=== PATIENT | female | born 1930 | race Caucasian/White ===

== ENCOUNTER 2016-10-17 11:03 | Inpatient (IN) ==
--- NOTE | 2016-10-17 11:45 | Emergency Department Note ---
Disposition Clinical Impression: Delirium due to general medical condition, Elevated troponin I level, Acute on chronic renal insufficiency CHF exacerbation Qualifiers: Congestive heart failure type: unspecified congestive heart failure type Qualified Code(s): I50.9 - Heart failure, unspecified Acute and chronic respiratory failure Qualifiers: Respiratory failure complication: hypoxia Qualified Code(s): J96.21 - Acute and chronic respiratory failure with hypoxia Anemia Qualifiers: Anemia type: unspecified type Qualified Code(s): D64.9 - Anemia, unspecified Disposition: Admitted As Inpatient Condition: Critical Time of Disposition: 12:53 Altered Mental Status HPI - General Chief Complaint: ED Altered Mental Status Stated Complaint: AMS Time Seen by Provider: 10/17/16 11:10 Source: patient, family, EMS Limitations: no limitations Nursing Notes Reviewed: Yes Vital Signs Reviewed: Yes - History of Present Illness HPI Narrative: 85-year-old female history of CVA, presents with increased weakness for the last 2 weeks, no clear acute onset of her symptoms, also has a history of CHF who was recently placed on diuretics, found to have an enlarged heart with pleural effusion on the left. MD complaint: altered mental status, confusion Timing confirmed by: family member Pain Severity: mild Consistency of Symptoms: getting worse Context: change in medication (lasix daily added to meds) Associated symptoms: Reports: cough, loss of appetite, malaise, weakness. Denies: fever, nausea/vomiting, foul smelling urine, diarrhea - Related Data Home Medications Medication Instructions Recorded Confirmed Allopurinol [Zyloprim 100 MG] 100 mg PO DAILY 02/06/16 09/17/16 Ascorbic Acid [Vitamin C] 500 mg PO DAILY 02/06/16 09/17/16 Calcium Carbonate [Tums] 1 tab PO QID PRN 02/06/16 09/17/16 Calcium Carbonate/Vitamin D3 1 tab PO DAILY 02/06/16 09/17/16 [Oyster Shell 500-Vit D3 200 Tb] Cholecalciferol (Vitamin D3) 5,000 units PO 3XW 02/06/16 09/17/16 [Vitamin D3] Clopidogrel [Plavix] 75 mg PO DAILY 02/06/16 09/17/16 Cyanocobalamin (Vitamin B-12) 1 tab PO DAILY 02/06/16 09/17/16 [Vitamin B-12] Folic Acid 1 mg PO DAILY 02/06/16 09/17/16 Mag Hydrox/Al Hydrox/Simeth 30 ml PO QID PRN 02/06/16 09/17/16 [Maalox] Menthol/Camphor [Polar Freeze Gel] 1 appl TP BID PRN #0 02/06/16 09/17/16 Mirtazapine 7.5 mg PO HS 02/06/16 09/17/16 Multivitamin [Multivitamins] 1 cap PO DAILY 02/06/16 09/17/16 Petrolatum,White [Vaseline] 1 appl TP DAILY PRN 02/06/16 09/17/16 Pyridoxine (B-6) [Vitamin B-6] 100 mg PO DAILY 02/06/16 09/17/16 Ranitidine HCl [Heartburn Relief] 150 mg PO BID 02/06/16 09/17/16 Ropinirole HCl [Requip] 0.5 mg PO BID 02/06/16 09/17/16 Terconazole Vag CRM [Terazol] 1 appl VG DAILY PRN #0 02/06/16 09/17/16 Vit C/E/Zn/Coppr/Lutein/Zeaxan 1 cap PO DAILY 02/06/16 09/17/16 [Ocuvite Lutein & Zeaxanthin Cp] Lidocaine HCl [Aspercreme] 1 appl TP AD 05/08/16 09/17/16 Pantoprazole Sodium [Protonix] 20 mg PO DAILY 05/08/16 09/17/16 Cranberry Fruit Concentrate 450 mg PO BID 09/17/16 09/17/16 [Cranberry] Furosemide [Lasix] 40 mg PO DAILY 09/17/16 09/17/16 Metoprolol XL (24 HR) Succ [Toprol 25 mg PO BID 09/17/16 09/17/16 Xl] Morphine Sulfate [Morphine Sulfate 30 mg PO BID 09/17/16 09/17/16 ER] Previous Rx's Medication Instructions Recorded Isosorbide MONOnitrate (24 HR) 30 mg PO DAILY #30 tab.er.24h 02/08/16 [Imdur] Amlodipine [Norvasc] 10 mg PO DAILY tablet 05/12/16 Magnesium Oxide [Magnesium] 400 mg PO DAILY #0 05/12/16 Quetiapine Fumarate [Seroquel] 12.5 mg PO BID #30 tablet 05/12/16 Thiamine (B-1) [Vitamin B-1] 100 mg PO DAILY tablet 05/12/16 Capsaicin 0.025% [Trixaicin] 1 appl TP QID PRN #1 tube 09/21/16 Hydrocodone/Acetaminophen [[place] 1 tab PO Q6H PRN #10 tab 09/21/16 5-325 Tablet] LORazepam [Ativan] 0.5 mg PO BID #20 tablet 09/21/16 Allergies Allergy/AdvReac Type Severity Reaction Status Date / Time ibuprofen [From Motrin] Allergy Hives Verified 11/08/15 00:21 niacin Allergy Hives Verified 11/08/15 00:21 Sulfa (Sulfonamide Allergy Hives Verified 05/08/16 12:37 Antibiotics) Review of Systems: A 14 point ROS was obtained and was negative except as per below or as documented in the HPI. Constitutional: weakness, weight change Denies: fever, chills, Eyes: Denies: eye pain, eye discharge, vision change ENT: Denies: ear pain, throat pain, hearing loss, epistaxis, congestion, Cardiovascular: Denies: chest pain, palpitations, dyspnea on exertion, edema, syncope Respiratory: cough, dyspnea, wheezes Denies: , hemoptysis, stridor Gastrointestinal: Denies: abdominal pain, nausea, vomiting. diarrhea, constipation, hematemesis, hematochezia Genitourinary: Denies: urgency, dysuria, frequency, hematuria Musculoskeletal: Denies: back pain, neck pain, arthralgia, myalgia Integumentary: Denies: rash, abrasion, lesions Neurological: Denies: headache, weakness, numbness, paresthesias, confusion, abnormal gait Psychiatric: Denies: anxiety, depression, suicidal thoughts, homicidal thoughts , Endocrine: Denies: fatigue Hematological/Lymphatic: Denies: easy bleeding, easy bruising Allergic/Immunologic: Denies: facial swelling, urticaria All systems ED: reviewed and negative except as stated. Past Medical History - Past Medical History Attestation: Yes The following information was validated with the patient. Source: patient Medical history: Reports: CHF, coronary artery disease, CVA, GERD, hyperlipidemia, hypertension, myocardial infarction Surgical history: Reports: appendectomy, cholecystectomy, hysterectomy, other ( left carodit endarterectomy) Psychiatric history: Reports: anxiety, depression - Social History Smoking Status: Never smoker Smokeless Tobacco Status: No Alcohol use: Reports: none Drug use: Reports: none Physical Exam General: 85-year-old female who appears mildly confused, shortness of breath Head: NCAT, no lesions Eyes: sclera anicteric, conjunctiva normal, PERRLA bilaterally, EOMI Bilaterally Ears: normal inspection, external ear wnl Nose: nasal septum nondeviated, sinuses nontender Throat: good dentition, mucous membranes dry Neck: no lymphadenopathy, trachea midline no deviation, no JVD Resp: Diminished breath sounds present bilaterally at the bases, decreased aeration CV: RRR, normal S1 and S2, no m/g/r, Pulses +2 Rad, +2 DP/PT Abdomen: Soft, NTND, no hepatosplenomegaly, no hernias, Negative Rovsing's sign , Negative Palomares's sign Rectal: Not grossly bloody, no obvious masses or hemorrhoids, knutson/yellow feces Back: normal inspection, no tenderness to palpation, Negative CVA tenderness bilaterally Neuro: A&O2, CN II-XII grossly intact bilaterally, no motor or sensory deficits bilaterally, not excess, patient was not ambulatory GCS 15 [id number] Ext: normal inspection, symmetric Active and Passive ROM UE and LE bilaterally , no pedal edema bilaterally Psych: normal mood, normal affect Skin: No rashes, skin warm, dry, intact - General Limitations: no limitations General appearance: alert, in no apparent distress Course Course Narrative: 85-year-old female with shortness of breath, altered mental status, precipitous decline in the last 2 weeks recently placed on diuretic for pleural effusion, also recently had a drop in her hemoglobin from 9-7.8, rectal exam does not show an obvious concern for GI bleed, patient has been symptomatically previously with UTIs we will get an ultrasound also has workup including head CT , oriented ABG patient may candidate for BiPAP and she is currently on 5 L of oxygen satting 86% and not moving much air, 1 placed on nonrebreather her saturation went up to 100% and she notes that she is breathing a lot easier. I cleared admission to ICU stepdown bed given the patient's multiple comorbidities and risk factors, will type and screen as well given concern for anemia, Blood glucose urinalysis reassessed - Reevaluation(s) Reevaluation #1: Spoke with Dr. Pennington limit the patient for acute respiratory failure, CHF exacerbation, acute on chronic renal failure, medicine service on BiPAP at this time. Time: 12:51 Reevaluation #2: Troponin was 0.08, I think this is due to demand ischemia and renal failure, urinalysis unremarkable not treat, I did attempt to call the hospitalist Dr. Pennington back at 1255, however page was not returned, just to communicate elevated troponin level however at this time I do not think she is a candidate for any anticoagulation. Time: 13:10 Vital Signs Temperature 98.7 F 10/17/16 11:06 Pulse Rate 102 10/17/16 11:06 Respiratory Rate 18 10/17/16 11:06 Blood Pressure 130/82 10/17/16 11:06 O2 Sat by Pulse Oximetry 93 L 10/17/16 11:06 Temperature 98.7 F 10/17/16 11:06 Pulse Rate 96 10/17/16 12:45 Respiratory Rate 18 10/17/16 13:07 Blood Pressure 100/62 10/17/16 13:07 O2 Sat by Pulse Oximetry 96 10/17/16 12:45 Oxygen Delivery Oxygen Delivery Bipap Altered Mental Status - [facility] Narrative Medical decision making narrative: 85-year-old female appears to have delirium in the setting of CHF exacerbation, acute on chronic respiratory failure acute on chronic renal failure, elevated troponin elevated creatinine, her clinical exam and x-ray are consistent with CHF exacerbation with bilateral pleural effusions, left greater than right, cardiomegaly, patient placed on BiPAP, diuresed with 40 of Lasix and IV Mosher placed, admitted to medicine service in serious condition - Differential Diagnosis Likely: alcoholic intoxication, altered mental status, delirium, dementia, hypoglycemia, hyponatremia, subarachnoid hemorrhage - Medical Records Medical records reviewed: Yes I reviewed the patient's medical records. - Lab Data Lab results reviewed: Yes I reviewed the patient's lab results. Result diagrams: 10/17/16 12:13 10/17/16 12:13 Lab Results 10/17/16 10/17/16 10/17/16 Range/Units 11:07 11:30 12:10 WBC (4.3-11.1) K/mcL RBC (3.82-4.97) M/mcL Hgb (11.5-15.4) g/dL Hct (35.3-44.9) % MCV (83.0-100.0) fL MCH (28.0-33.3) pg MCHC (31.6-35.5) g/dL RDW (11.5-14.5) % Plt Count (140-400) K/mcL MPV (9.4-12.4) fL Immature Gran % (0-4) % Seg Neutrophils % % Lymphocytes % % Monocytes % % Eosinophils % % Basophils % % Neutrophils # (1.6-8.9) K/mcL Lymphocytes # (0.6-4.6) K/mcL Monocytes # (0.0-1.3) K/mcL Eosinophils # (0.0-0.6) K/mcL Basophils # (0.0-0.2) K/mcL PT (9.4-12.1) Seconds INR APTT (26.0-36.0) Seconds ABG pH 7.38 (7.32-7.45) pH Units ABG pCO2 55 H (35-45) mmHg ABG pO2 124 H (85-104) mmHg ABG HCO3 32.5 H (21-27) mEQ/L ABG Total CO2 34.2 H (20-26) mEq/L ABG O2 Saturation 99 H (95-98) % ABG Base Excess 6.4 H (-2.0 to 3.0) mEq/L Blood Gas Modality NRB Inspired O2 100 % Sodium (136-145) mEq/L Potassium (3.5-4.5) mEq/L Chloride (98-109) mEq/L Carbon Dioxide (19-29) mEq/L BUN (7-20) mg/dL Creatinine (0.57-1.11) mg/dL Est GFR ( Amer) (> 60) Est GFR (Non-Af Amer) (> 60) BUN/Creatinine Ratio (6-26) Glucose (70-99) mg/dL POC Glucose 171 H (58-89) Calculated Osmolality (280-300) Calcium (8.6-10.8) mg/dL Total Bilirubin (0.2-1.2) mg/dL Direct Bilirubin (0.0-0.5) mg/dL Indirect Bilirubin (0.0-1.2) mg/dL AST (5-34) Units/L ALT (0-55) Units/L Alkaline Phosphatase (38-126) Units/L Creatine Kinase (29-168) Units/L Troponin I (0-0.03) ng/mL Serum Total Protein (6.0-8.3) g/dL Albumin (3.5-5.0) g/dL Globulin (2.4-3.5) g/dL Albumin/Globulin Ratio (1.1-2.2) TSH (0.350-4.840) mcIU/mL Stool Occult Blood Negative (Negative) Ethyl Alcohol (0-10) mg/dL 10/17/16 10/17/16 10/17/16 Range/Units 12:13 12:13 12:13 WBC 9.0 (4.3-11.1) K/mcL RBC 3.03 L (3.82-4.97) M/mcL Hgb 8.5 L (11.5-15.4) g/dL Hct 26.4 L (35.3-44.9) % MCV 87.1 (83.0-100.0) fL MCH 28.1 (28.0-33.3) pg MCHC 32.2 (31.6-35.5) g/dL RDW 14.7 H (11.5-14.5) % Plt Count 322 (140-400) K/mcL MPV 8.9 L (9.4-12.4) fL Immature Gran % 0.7 (0-4) % Seg Neutrophils % 80.5 % Lymphocytes % 7.1 % Monocytes % 10.8 % Eosinophils % 0.7 % Basophils % 0.2 % Neutrophils # 7.3 (1.6-8.9) K/mcL Lymphocytes # 0.6 (0.6-4.6) K/mcL Monocytes # 1.0 (0.0-1.3) K/mcL Eosinophils # 0.1 (0.0-0.6) K/mcL Basophils # 0.0 (0.0-0.2) K/mcL PT 13.9 H (9.4-12.1) Seconds INR 1.3 APTT 34.0 (26.0-36.0) Seconds ABG pH (7.32-7.45) pH Units ABG pCO2 (35-45) mmHg ABG pO2 (85-104) mmHg ABG HCO3 (21-27) mEQ/L ABG Total CO2 (20-26) mEq/L ABG O2 Saturation (95-98) % ABG Base Excess (-2.0 to 3.0) mEq/L Blood Gas Modality Inspired O2 % Sodium 135 L (136-145) mEq/L Potassium 5.0 H (3.5-4.5) mEq/L Chloride 98 (98-109) mEq/L Carbon Dioxide 26 (19-29) mEq/L BUN 81 H (7-20) mg/dL Creatinine 2.97 H (0.57-1.11) mg/dL Est GFR ( Amer) 18 L (> 60) Est GFR (Non-Af Amer) 15 L (> 60) BUN/Creatinine Ratio 27 H (6-26) Glucose 155 H (70-99) mg/dL POC Glucose (58-89) Calculated Osmolality 308 H (280-300) Calcium 9.4 (8.6-10.8) mg/dL Total Bilirubin 0.4 (0.2-1.2) mg/dL Direct Bilirubin 0.2 (0.0-0.5) mg/dL Indirect Bilirubin 0.2 (0.0-1.2) mg/dL AST 17 (5-34) Units/L ALT 13 (0-55) Units/L Alkaline Phosphatase 118 (38-126) Units/L Creatine Kinase 187 H (29-168) Units/L Troponin I (0-0.03) ng/mL Serum Total Protein 6.8 (6.0-8.3) g/dL Albumin 2.5 L (3.5-5.0) g/dL Globulin 4.3 H (2.4-3.5) g/dL Albumin/Globulin Ratio 0.6 L (1.1-2.2) TSH 0.618 (0.350-4.840) mcIU/mL Stool Occult Blood (Negative) Ethyl Alcohol < 10 (0-10) mg/dL 10/17/16 Range/Units 12:13 WBC (4.3-11.1) K/mcL RBC (3.82-4.97) M/mcL Hgb (11.5-15.4) g/dL Hct (35.3-44.9) % MCV (83.0-100.0) fL MCH (28.0-33.3) pg MCHC (31.6-35.5) g/dL RDW (11.5-14.5) % Plt Count (140-400) K/mcL MPV (9.4-12.4) fL Immature Gran % (0-4) % Seg Neutrophils % % Lymphocytes % % Monocytes % % Eosinophils % % Basophils % % Neutrophils # (1.6-8.9) K/mcL Lymphocytes # (0.6-4.6) K/mcL Monocytes # (0.0-1.3) K/mcL Eosinophils # (0.0-0.6) K/mcL Basophils # (0.0-0.2) K/mcL PT (9.4-12.1) Seconds INR APTT (26.0-36.0) Seconds ABG pH (7.32-7.45) pH Units ABG pCO2 (35-45) mmHg ABG pO2 (85-104) mmHg ABG HCO3 (21-27) mEQ/L ABG Total CO2 (20-26) mEq/L ABG O2 Saturation (95-98) % ABG Base Excess (-2.0 to 3.0) mEq/L Blood Gas Modality Inspired O2 % Sodium (136-145) mEq/L Potassium (3.5-4.5) mEq/L Chloride (98-109) mEq/L Carbon Dioxide (19-29) mEq/L BUN (7-20) mg/dL Creatinine (0.57-1.11) mg/dL Est GFR ( Amer) (> 60) Est GFR (Non-Af Amer) (> 60) BUN/Creatinine Ratio (6-26) Glucose (70-99) mg/dL POC Glucose (58-89) Calculated Osmolality (280-300) Calcium (8.6-10.8) mg/dL Total Bilirubin (0.2-1.2) mg/dL Direct Bilirubin (0.0-0.5) mg/dL Indirect Bilirubin (0.0-1.2) mg/dL AST (5-34) Units/L ALT (0-55) Units/L Alkaline Phosphatase (38-126) Units/L Creatine Kinase (29-168) Units/L Troponin I 0.08 H* (0-0.03) ng/mL Serum Total Protein (6.0-8.3) g/dL Albumin (3.5-5.0) g/dL Globulin (2.4-3.5) g/dL Albumin/Globulin Ratio (1.1-2.2) TSH (0.350-4.840) mcIU/mL Stool Occult Blood (Negative) Ethyl Alcohol (0-10) mg/dL - Radiology Data Radiology results reviewed: Yes I reviewed the patient's radiology results. Chest X-Ray 10/17/16 11:20 IMPRESSION: Large amount of opacity in the left retrocardiac area worrisome for left lower lobe pneumonia or left lower lobe consolidation from atelectasis. Suspected moderate left pleural effusion. Mild to moderate atelectasis in the left upper lobe. Slight to mild pulmonary vascular congestion which may be chronic. Very small right pleural effusion. Marked cardiomegaly. D/ / Francisco Root MD / Francisco Root MD Interpreting Provider: Francisco Root MD Head CT 10/17/16 11:21 IMPRESSION: No acute intracranial abnormality. Mild cerebral atrophy appropriate for age. Mild chronic ischemic white matter changes also appropriate for age. Small old subcortical white matter infarcts in each mid parietal convexity. Small old infarct in the left basal ganglia. No significant change from the prior study. D/ / Francisco Root MD / Francisco Root MD Interpreting Provider: Francisco Root MD - EKG Data EKG attestation: Yes I reviewed and interpreted this EKG. EKG shows normal: sinus rhythm Rate: tachycardia (Ventricular rate 100 bpm IA 152 QRS 106 QTC 399) Rhythm: NSR Ovid/QRS: normal Interpretation: no acute changes Critical Care Time Critical Care Time: Yes Total Critical Care Time: 35 Attestation: 35 minutes critical care managing patient's respiratory failure and multiple organ system dysfunction. Attestation Statement - Attestation Attestation: Patient was seen with resident physician. I reviewed the history, physical, assessment and plan, and agree with the findings. I also personally evaluated this patient and had [id number] time with this patient. A 5-year-old female presents to the emergency department with worsening mental status and general decline for the last 48 hours or so. The history from family member says that she has not been feeling well for the last couple days but today she has been hallucinating and really not interacting well or able to take care of herself which prompted the visit. On examination the patient she will provide 0 history. She has very poor air exchange, and her lungs sound congested. Her heart is mildly tachycardic. Her abdomen is soft and nontender. Her extremities are essentially unremarkable. Neurologically patient is awake and appears alert but does not all commands particularly well and it is difficult to communicate with her. There is no obvious signs of acute neurologic deficiencies though. Workup revealed a variety of problems including respiratory failure with CHF, anemia, mental status change, acute on chronic renal failure. Case was discussed with the hospitalist to arrange for admission to the hospital for management of her multiple conditions. I agree with the resident physician assessment and plan. Critical care time for this patient was 35 minutes.
[2016-10-17] MEDS ORDERED: Ondansetron 4 MG/2 ML VIAL IV ONE (12:11)
[2016-10-17] MEDS ORDERED: 0.9 % Sodium Chloride 1,000 ML IV ONE (12:11)
[2016-10-17 12:19] LABS: ABG Base Excess 6.4 mEq/L (-2.0 to 3.0); ABG HCO3 32.5 mEQ/L (21-27); ABG Oxygen Saturation 99 % (95-98); ABG PCO2 55 mmHg (35-45); ABG PH 7.38 pH Units (7.32-7.45); ABG PO2 124 mmHg (85-104); ABG TCO2 34.2 mEq/L (20-26)
[2016-10-17 12:22] LABS: Basophils % 0.2 %; Eosinophils # 0.1 K/mcL (0.0-0.6); Eosinophils % 0.7 %; Hematocrit 26.4 % (35.3-44.9); Hemoglobin 8.5 g/dL (11.5-15.4); Immature Granulocytes % 0.7 % (0-4); Lymphocytes # 0.6 K/mcL (0.6-4.6); Lymphocytes % 7.1 %; Mean Corpuscular HGB Conc 32.2 g/dL (31.6-35.5); Mean Corpuscular Hemoglobin 28.1 pg (28.0-33.3); Mean Corpuscular Volume 87.1 fL (83.0-100.0); Mean Platelet Volume 8.9 fL (9.4-12.4); Monocytes % 10.8 %; Neutrophils # 7.3 K/mcL (1.6-8.9); Platelet Count 322 K/mcL (140-400); Red Blood Count 3.03 M/mcL (3.82-4.97); Red Cell Distribution Width 14.7 % (11.5-14.5); Segmented Neutrophils % 80.5 %
[2016-10-17 12:22] LABS: Blood Gas FiO2 100 %
[2016-10-17 12:26] LABS: INR 1.3; Prothrombin Time 13.9 Seconds (9.4-12.1)
[2016-10-17 12:41] LABS: Alanine Aminotransferase 13 Units/L (0-55); Albumin 2.5 g/dL (3.5-5.0); Albumin/Globulin Ratio 0.6 (1.1-2.2); Alkaline Phosphatase 118 Units/L (38-126); Aspartate Amino Transferase 17 Units/L (5-34); BUN/Creatinine Ratio 27 (6-26); Bilirubin,Direct 0.2 mg/dL (0.0-0.5); Bilirubin,Indirect 0.2 mg/dL (0.0-1.2); Bilirubin,Total 0.4 mg/dL (0.2-1.2); Blood Urea Nitrogen 81 mg/dL (7-20); Calcium 9.4 mg/dL (8.6-10.8); Carbon Dioxide 26 mEq/L (19-29); Chloride 98 mEq/L (98-109); Creatine Kinase 187 Units/L (29-168); Globulin 4.3 g/dL (2.4-3.5); Glucose 155 mg/dL (70-99); Osmolality,Calculated 308 (280-300); Sodium 135 mEq/L (136-145); Total Protein 6.8 g/dL (6.0-8.3); eGFR For African Americans 18 (> 60); eGFR For Non-African Americans 15 (> 60)
[2016-10-17 12:43] LABS: Ethanol < 10 mg/dL (0-10)
[2016-10-17] MEDS ORDERED: Furosemide 40 MG/4 ML VIAL IVP ONE (12:44)
[2016-10-17 13:02] LABS: Thyroid Stimulating Hormone 0.618 mcIU/mL (0.350-4.840)
[2016-10-17 13:07] LABS: Bilirubin,Urine Negative (Negative); Blood,Urine Negative (Negative); Clarity,Urine Cloudy (Clear); Color,Urine Yellow (Yellow); Glucose,Urine (UA) Normal (Normal); Ketones,Urine Negative (Negative); Leukocyte Esterase,Urine Negative (Negative); Nitrite,Urine Negative (Negative); Protein,Urine Trace mg/dL (Neg-Trace); Specific Gravity,Urine 1.009 (1.010-1.025); Urobilinogen,Urine Normal (Normal)
[2016-10-17 13:09] LABS: Bacteria,Urine None Seen per hpf (None-Few); Hyaline Casts,Urine Few per lpf (None-Few); RBC,Urine 0-3 per hpf (0-3); Squamous Epithelial Cell,Urine Moderate per lpf (None-Few); WBC,Urine 0-3 per hpf (0-3)
[2016-10-17 13:13] LABS: Amphetamine Screen,Urine Negative ng/mL (Cutoff=1000); Barbiturate Screen,Urine Negative ng/mL (Cutoff=200); Benzodiazepines Screen,Urine Negative ng/mL (Cutoff=200); Cannabinoid Screen,Urine Negative ng/mL (Cutoff = 50); Cocaine Screen,Urine Negative ng/mL (Cutoff= 300); Opiate Screen,Urine Positive ng/mL (Cutoff=300); Phencyclidine Screen,Urine Negative ng/mL (Cutoff=25)
[2016-10-17] MEDS ORDERED: Capsaicin 0.025% 60 GM TUBE TP PRN (14:01)
[2016-10-17] MEDS ORDERED: *HR* HYDROcodone/Acet 5/325 mg TABLET PO PRN (14:01)
[2016-10-17] MEDS ORDERED: Terconazole Vag CRM 20 GM TUBE VG PRN (14:01)
[2016-10-17] MEDS ORDERED: Acetaminophen 325 MG TABLET PO PRN (14:01)
[2016-10-17] MEDS ORDERED: Mag Hydrox/Al Hydrox/Simeth 30 ML UDC PO PRN (14:01)
[2016-10-17] MEDS ORDERED: Petrolatum, white 28.35 GM TUBE TP PRN (14:01)
[2016-10-17] MEDS ORDERED: MOM Conc 10 ML UD.LIQ PO PRN (15:07)
[2016-10-17] MEDS ORDERED: Ondansetron 4 MG/2 ML VIAL IVP PRN (15:07)
--- NOTE | 2016-10-17 15:20 | Internal Med History&Physical ---
Date of Encounter: 10/17/16 Time of Encounter: 14:40 Assessment and Plan (1) Acute encephalopathy Current visit: Yes Status: Acute Pt alert to name only, answers questions appropriately, although is slow to respond. Family reports 2 day h/o increasing confusion and visual hallucinations. Head CT negative for acute changes, Urine negative for infection , no leukocytosis, most likely due to hypoxia and hypercapnia. Fall precautions Monitor labs Watch pt closely for change in status (2) Respiratory failure with hypoxia and hypercapnia Current visit: Yes Status: Acute Worsening SOB over last 2 days, secondary to CHF exacerbation. Pt on Bipap, chao well, however, if condition worsens, pt is DNR-CC and will not be intubated. Lasix 40mg IV BID Repeat ABG Qualifiers: Chronicity: acute on chronic Qualified Code(s): J96.21 - Acute and chronic respiratory failure with hypoxia; J96.22 - Acute and chronic respiratory failure with hypercapnia (3) Elevated troponin I level Current visit: Yes Status: Acute Troponin 0.08ng/mL initially. Possibly from demand on heart. Pt unable to answer questions about pain, so unable to assess if pt has chest pain. Continue home medications Continuous cardiac monitoring Repeat troponin ECHO (4) CKD (chronic kidney disease) stage 3, GFR 30-59 ml/min Current visit: Yes Status: Chronic BuN 81mg/dl, Creat 2.97 mg/dl. BUN has been increasing for the last month, has increased from 50mg/dl on 10/12/16. Avoid nephrotoxins Continue home medications Monitor labs (5) Hyperkalemia Current visit: No Status: Acute Potassium 5.0 meq/L and will most likely resolve with diuresis. No EKG changes noted. Lasix 40mg IV BID Monitor labs Internal Medicine - H&P: HPI Admitted From: Long-term Nursing Facility Plans for Post Hospital Care: Transfer [facility] History of present illness: Ms. Cortez is a 85 year old female with h/o CKD Stage III, CHF, hypertension , and chronic pain who is admitted for mental status change, increasing SOB, elevated troponin, respiratory failure and need for bipap, and anemia. Per family, pt was inpt 2-3 weeks ago for a UTI and has never returned to her baseline. Family reports recent increased confusion and hallucinations. Past Med Surg Social Fam HX - Past Medical History Medical history: CHF, coronary artery disease, CVA, GERD, hyperlipidemia, hypertension, myocardial infarction Psychiatric history: anxiety, depression - Past Surgical History Surgical History: appendectomy, cholecystectomy, hysterectomy, other - Social History Smoking Status: Never smoker Smokeless Tobacco Status: No Alcohol use: none Drug use: none - Family History Mother Living Status: Father Living Status: Daughter Hx Family Cancer: Yes (lung) Internal Medicine - H&P: Meds Allopurinol [Zyloprim 100 MG] 100 mg PO DAILY 02/06/16 [History] Ascorbic Acid [Vitamin C] 500 mg PO DAILY 02/06/16 [History] Calcium Carbonate [Tums] 1 tab PO QID PRN 02/06/16 [History] Calcium Carbonate/Vitamin D3 [Oyster Shell 500-Vit D3 200 Tb] 1 tab PO DAILY 04/16 [History] Cholecalciferol (Vitamin D3) [Vitamin D3] 5,000 units PO 3XW 02/06/16 [History] Clopidogrel [Plavix] 75 mg PO DAILY 02/06/16 [History] Cyanocobalamin (Vitamin B-12) [Vitamin B-12] 1 tab PO DAILY 02/06/16 [History] Folic Acid 1 mg PO DAILY 02/06/16 [History] Mag Hydrox/Al Hydrox/Simeth [Maalox] 30 ml PO QID PRN 02/06/16 [History] Menthol/Camphor [Polar Freeze Gel] 1 appl TP BID PRN #0 02/06/16 [History] Mirtazapine 7.5 mg PO HS 02/06/16 [History] Multivitamin [Multivitamins] 1 cap PO DAILY 02/06/16 [History] Petrolatum,White [Vaseline] 1 appl TP DAILY PRN 02/06/16 [History] Pyridoxine (B-6) [Vitamin B-6] 100 mg PO DAILY 02/06/16 [History] Ranitidine HCl [Heartburn Relief] 150 mg PO BID 02/06/16 [History] Ropinirole HCl [Requip] 0.5 mg PO BID 02/06/16 [History] Terconazole Vag CRM [Terazol] 1 appl VG DAILY PRN #0 02/06/16 [History] Vit C/E/Zn/Coppr/Lutein/Zeaxan [Ocuvite Lutein & Zeaxanthin Cp] 1 cap PO DAILY 02/06/16 [History] Isosorbide MONOnitrate (24 HR) [Imdur] 30 mg PO DAILY #30 tab.er.24h 02/08/16 [ Rx] Lidocaine HCl [Aspercreme] 1 appl TP AD 05/08/16 [History] Pantoprazole Sodium [Protonix] 20 mg PO DAILY 05/08/16 [History] Amlodipine [Norvasc] 10 mg PO DAILY tablet 05/12/16 [Rx] Magnesium Oxide [Magnesium] 400 mg PO DAILY #0 05/12/16 [Rx] Quetiapine Fumarate [Seroquel] 12.5 mg PO BID #30 tablet 05/12/16 [Rx] Thiamine (B-1) [Vitamin B-1] 100 mg PO DAILY tablet 05/12/16 [Rx] Cranberry Fruit Concentrate [Cranberry] 450 mg PO BID 09/17/16 [History] Furosemide [Lasix] 40 mg PO DAILY 09/17/16 [History] Metoprolol XL (24 HR) Succ [Toprol Xl] 25 mg PO BID 09/17/16 [History] Morphine Sulfate [Morphine Sulfate ER] 30 mg PO BID 09/17/16 [History] Capsaicin 0.025% [Trixaicin] 1 appl TP QID PRN #1 tube 09/21/16 [Rx] Hydrocodone/Acetaminophen [[place] 5-325 Tablet] 1 tab PO Q6H PRN #10 tab [Rx] LORazepam [Ativan] 0.5 mg PO BID #20 tablet 09/21/16 [Rx] Acetaminophen [Tylenol] 650 mg PO Q6HR PRN 10/17/16 [History] Ipratropium/Albuterol Neb [Duoneb] 3 ml IH BID 10/17/16 [History] Lisinopril 2.5 mg PO DAILY 10/17/16 [History] Allergies ibuprofen [From Motrin] Allergy (Verified 11/08/15 00:21) Hives niacin Allergy (Verified 11/08/15 00:21) Hives Sulfa (Sulfonamide Antibiotics) Allergy (Verified 05/08/16 12:37) Hives ROS unobtainable: due to mental status All Systems PM: A 10-system review of systems was performed and is negative for pertinent findings except as documented above in the HPI. - Respiratory Respiratory: dyspnea Additional comments: Information obtained from family at bs. - Genitourinary Additional comments: recent UTI - Musculoskeletal Musculoskeletal ROS IM: muscle weakness - Neurological Neurological ROS: confusion, other visual disturbances - Psychiatric Psychiatric: hallucinations - Constitutional Vitals: Temp Pulse Resp BP Pulse Ox 97.9 F 95 12 131/56 96 10/17/16 13:45 10/17/16 13:58 10/17/16 13:45 10/17/16 13:45 10/17/16 13:45 General appearance: Present: cooperative, pleasant Exam: Pt is oriented to name only. - Neck Neck exam general surgery: Absent: lymphadenopathy, tenderness - Respiratory Respiratory exam: Present: accessory muscle use, decreased breath sounds. Absent: chest wall tenderness, tachypnea - Cardiovascular Cardiovascular exam: Present: +S1, +S2. Absent: bradycardia, JVD, tachycardia - GI/Abdominal GI/Abdominal exam: Present: diminished bowel sounds, soft, tenderness - Extremities Exam Extremities exam: Present: normal capillary refill, warm, radial pulses palpable and symetrical. Absent: pedal edema, tenderness - Skin Skin exam: Present: dry, normal color, warm Internal Med - H&P Results - Labs CBC & Chem 7: 10/17/16 12:13 10/17/16 12:13 Labs: Urine 10/17/16 Range/Units 12:54 Urine Color Yellow (Yellow) Urine Clarity Cloudy A (Clear) Urine pH 5.0 (5.0-8.0) pH Units Ur Specific [place] 1.009 L (1.010-1.025) Urine Protein Trace (Neg-Trace) mg/dL Urine Glucose (UA) Normal (Normal) mg/dL - EKG Data -: EKG Interpreted by Myself EKG shows normal: sinus rhythm Rate: tachycardia
[2016-10-17] MEDS: LIDOCAINE HCL APPL TP SCH (15:22)
[2016-10-17] MEDS ORDERED: Petrolatum, White OINT.PACK TP PRN (15:38)
[2016-10-17] MEDS ORDERED: Vancomycin 1,000 MG in D5% in Water 250 ML IVPB ONE (17:52)
[2016-10-17] MEDS ORDERED: *HR* LORazepam 2 MG/ML VIAL IVP ONE ×2 (17:54→17:55)
[2016-10-17] MEDS ORDERED: Levofloxacin 750 MG/150 ML 750 MG/150 ML BAG IVPB ONE (18:00)
[2016-10-17] MEDS ORDERED: Levofloxacin 750 MG/150 ML 750 MG/150 ML BAG IVPB SCH (18:00)
[2016-10-17] MEDS ORDERED: Vancomycin 1,500 MG in D5% in Water 250 ML IVPB ONE (18:34)
[2016-10-17] MEDS: Ipratropium/Albuterol Neb 3 ML IH SCH ×2 (20:31→21:01)
[2016-10-17] MEDS ORDERED: NON-FORMULARY MEDICATION 1 EACH EACH (Ranitidine Hcl [Heartburn Relief] 150 MG) PO SCH (21:00)
[2016-10-17 21:06] LABS: ABG Base Excess 7.4 mEq/L (-2.0 to 3.0); ABG HCO3 33.3 mEQ/L (21-27); ABG Oxygen Saturation 98 % (95-98); ABG PCO2 55 mmHg (35-45); ABG PH 7.39 pH Units (7.32-7.45); ABG PO2 104 mmHg (85-104); Blood Gas FiO2 50 %
[2016-10-17] MEDS: rOPINIRole 0.25 MG TABLET PO SCH (21:41)
[2016-10-17] MEDS: Furosemide 40 MG/4 ML VIAL IVP SCH (21:41)
[2016-10-17] MEDS: Mirtazapine 15 MG TABLET PO SCH (21:41)
[2016-10-17] MEDS: Famotidine 20 MG TABLET PO SCH (21:41)
[2016-10-17] MEDS: *HR* Morphine Sulfate SR (12 HR) 30 MG TABLET.ER PO SCH (21:42)
[2016-10-17] MEDS: *HR* LORazepam 0.5 MG TABLET PO SCH (21:42)
[2016-10-17] MEDS: Metoprolol XL (24 HR) Succ 25 MG TAB.ER.24H PO SCH (21:42)
[2016-10-17] MEDS: (Cranberry Fruit Concentrate [Cranberry] 450 MG) PO SCH (21:43)
[2016-10-18] MEDS ORDERED: Piperacillin/Tazobactam 3.375 GM in D5% in Water (Mini-Bag+) 100 ML IVPB SCH ×2
[2016-10-18 05:17] LABS: Basophils % 0.1 %; Eosinophils # 0.1 K/mcL (0.0-0.6); Eosinophils % 1.4 %; Hematocrit 22.6 % (35.3-44.9); Hemoglobin 7.2 g/dL (11.5-15.4); Immature Granulocytes % 0.4 % (0-4); Lymphocytes # 1.1 K/mcL (0.6-4.6); Lymphocytes % 15.6 %; Mean Corpuscular HGB Conc 31.9 g/dL (31.6-35.5); Mean Corpuscular Hemoglobin 27.8 pg (28.0-33.3); Mean Corpuscular Volume 87.3 fL (83.0-100.0); Mean Platelet Volume 9.2 fL (9.4-12.4); Monocytes # 1.1 K/mcL (0.0-1.3); Monocytes % 14.5 %; Neutrophils # 4.9 K/mcL (1.6-8.9); Platelet Count 274 K/mcL (140-400); Red Blood Count 2.59 M/mcL (3.82-4.97); Red Cell Distribution Width 14.7 % (11.5-14.5)
[2016-10-18 05:33] LABS: Calcium 8.8 mg/dL (8.6-10.8)
[2016-10-18] MEDS: VITAMIN D3 PO SCH (07:50)
[2016-10-18] MEDS: CALCIUM CARBONATE PO SCH (07:50)
[2016-10-18] MEDS: (Cranberry Fruit Concentrate [Cranberry] 450 MG) PO SCH ×2 (07:50→21:13)
[2016-10-18] MEDS: CYANOCOBALAMIN PO SCH (07:50)
[2016-10-18] MEDS: Folic Acid 1 MG TABLET PO SCH (08:03)
[2016-10-18] MEDS: Thiamine (B-1) 100 MG TABLET PO SCH (08:03)
[2016-10-18] MEDS: *HR* LORazepam 0.5 MG TABLET PO SCH ×2 (08:03→21:13)
[2016-10-18] MEDS: Magnesium Oxide 400 MG TABLET PO SCH (08:03)
[2016-10-18] MEDS: Furosemide 40 MG/4 ML VIAL IVP SCH ×2 (08:03→21:11)
[2016-10-18] MEDS: Multivit/Ca/Min/Fe/FA 1 TAB TABLET PO SCH (08:04)
[2016-10-18] MEDS: Cholecalciferol (D-3) 1,000 UNIT TABLET PO SCH (08:04)
[2016-10-18] MEDS: Ascorbic Acid 500 MG TABLET PO SCH (08:04)
[2016-10-18] MEDS: rOPINIRole 0.25 MG TABLET PO SCH ×2 (08:05→21:12)
[2016-10-18] MEDS: Pyridoxine (B-6) 50 MG TABLET PO SCH (08:05)
[2016-10-18] MEDS: Isosorbide MONOnitrate (24 HR) 30 MG TAB.ER.24H PO SCH (08:05)
[2016-10-18] MEDS: Metoprolol XL (24 HR) Succ 25 MG TAB.ER.24H PO SCH ×2 (08:06→21:12)
[2016-10-18] MEDS: *HR* Morphine Sulfate SR (12 HR) 30 MG TABLET.ER PO SCH (08:16)
[2016-10-18] MEDS: amLODIPine 5 MG TABLET PO SCH (08:22)
[2016-10-18] MEDS ORDERED: [UNRECOGNIZED DRUG - OTHER] PO SCH (09:00)
--- NOTE | 2016-10-18 10:34 | ECHO - Doppler Report ---
Echocardiogram Name: Aubrey Cortez Date of Study: 10/17/2016 Date: 1930 Ht: 59.0 in Medical Record#: [id number] Age: 85 Wt: 162.0 lb Gender: Female BSA: 1.69 Order #: [id number] Location: [facility] Room #: 2N9 Reading Physician: Moiz Partida MD, [facility] Wardrobe Technician: Yarelis Goyal RDCS Ordering Physician: Noemi Woods CNP Primary Physician: Sancho Olvera MD Indications: Congestive heart failure, Cardiomyopathy, Respiratory Failure Impressions: Incomplete exam. Patient reportedly could not tolerate further images and examination was stopped before all images were reported. Subcostal images were not performed. Normal left ventricular size and systolic function, LVEF 60-65%. Mild concentric left ventricular hypertrophy. Moderate left ventricular diastolic dysfunction. Normal right ventricular size and function. Mild-moderate aortic stenosis. Mild pulmonary hypertension. Estimated RVSP = 40 mmHg. The pericardium is thickened. There is a moderate-large pericardial effusion present. There is no echocardiographic evidence of tamponade, however, this was an incomplete exam with no subcostal views. A pleural effusion is also noted. Recommend cardiology consultation. Consider repeating a limited echocardiogram to further evaluate the pericardial effusion if clinically indicated. Left Ventricular Wall Motion: Rest Echo Findings All wall segments showed normal motion. Findings: Study Quality * Incomplete exam. Patient reportedly could not tolerate further images and examination was stopped before all images were reported. Subcostal images were not performed. ECG Findings * Normal sinus rhythm. Left Ventricle * Normal left ventricular size and systolic function, LVEF 60-65%. * Mild concentric left ventricular hypertrophy. * Moderate left ventricular diastolic dysfunction. Right Ventricle * Normal right ventricular size and function. Left Atrium * Normal left atrial size. Right Atrium * Normal right atrial size. Aorta * Normally sized aortic root. Pericardium * The pericardium is thickened. * There is a moderate-large pericardial effusion present. * There is no echocardiographic evidence of tamponade, however, this was an incomplete exam with no subcostal views. Pleural Effusion * A pleural effusion is also noted. Aortic Valve * Aortic valve not well visualized. * Mild-moderate aortic stenosis. * No aortic regurgitation. Mitral Valve * Mild mitral annular calcification * Mildly thickened mitral valve leaflets. * No mitral stenosis. * Trace mitral regurgitation. Tricuspid Valve * Tricuspid valve not well visualized. * No tricuspid stenosis. * Trace tricuspid regurgitation. * Mild pulmonary hypertension. Estimated RVSP = 40 mmHg. Pulmonic Valve * Pulmonic valve not well visualized. * No pulmonic stenosis. * No pulmonic regurgitation. History Hypertension Hypercholesteremia History of CAD/PTCA Myocardial Infarction Congestive Heart Failure 02/06/2016 a Previous Echo was performed. Measurements: BP: 108/ 49 2D Normal Values RVIDd: 2.87 cm IVSd: 1.20 cm 0.6 - 1.0 cm LVIDd: 4.00 cm 3.7 - 5.6 cm LVPWd: 1.10 cm 0.6 - 1.1 cm LVIDs: 2.50 cm 1.5 - 3.6 cm AO: 2.20 cm < 4.0 cm LVOT Diam: 2.00 cm LA volume: 30 Mitral Valve Peak E:.83 m/sec Peak A:.80 m/sec E/A Ratio:1 Peak E' Lat Ferdinand:7.71 cm/s Peak E' Med Ferdinand:7.58 cm/s E/E' Lat Ratio:10.8 E/E' Med Ratio:11 LVOT Peak Ferdinand:.98 m/sec Mean Ferdinand:.67 m/sec Peak Grad:4.00 mmHg Mean Grad:2.00 mmHg Aortic Valve Peak Ferdinand:2.85 m/sec Peak Grad:32.00 mmHg Mean Grad:19.00 mmHg Valve Area:1.23 cm2 Tricuspid Valve TV Regurg Peak Grad: 35.00mmHg TV Regurg Peak Ferdinand: 2.96m/sec Updated by Moiz Partida MD, [facility] on 10/18/2016 10:29:17 AM electronically signed on 10/18/2016 10:30:53 AM with status of Final Wall Motion [place]: 1=Normal, 2=Hypokinesis, 3=Akinesis, 4=Dyskinesis, 5=Aneurysmal, 6=Hyperkinetic, X=Not Visualized (Blank)=Missing
[2016-10-18] MEDS: Ipratropium/Albuterol Neb 3 ML IH SCH ×2 (11:36→22:22)
[2016-10-18] MEDS: Piperacillin/Tazobactam 3.375 GM in D5% in Water (Mini-Bag+) 100 ML IVPB SCH (12:55)
[2016-10-18] MEDS: LIDOCAINE HCL APPL TP SCH (13:07)
--- NOTE | 2016-10-18 13:23 | Cardiology Consult Note ---
Date of Encounter: 10/18/16 Time of Encounter: 13:19 Assessment and Plan (1) Pericardial effusion without cardiac tamponade Current Visit: No Status: Acute - No evidence of tamponade, hemodynamically stable - Initial echo had suboptimal views, recommend repeating limited echo. - Patient is a DNR CC. However, could discuss therapeutic/diagnostic pericardiocentesis - Monitor closely, patient denies any chest pain or shortness of breath at this time - Could be related to patients uremia or PNA - Further recommendations pending attending evaluation (2) Elevated troponin I level Current Visit: Yes Status: Acute - Initial Troponin 0.08, no repeat troponin is available at this time, recommend trending - patient is awake and alert now and denies any chest pain or difficulty in breathing at any point - Continue home meds - Maintain continuous cardiac monitoring - Repeat EKG 10/18 (3) HTN (hypertension) Current Visit: No Status: Chronic - Well-controlled, continue current medication. Qualifiers: Hypertension type: unspecified secondary hypertension Qualified Code(s): I15.9 - Secondary hypertension, unspecified; I15 - Secondary hypertension (4) Altered mental status Current Visit: No Status: Acute - Likely multifactorial - Patient was not acutely altered on my exam. Daughter reported that it seems to be worse at night. Could be developing sundowner syndrome. We did discuss therapies to minimize this, such as opening blinds during the day and keeping the lights on, as well as giving the patient many comforts of home that she is used to, such as hearing aids and glasses. Then, in the evening, closing the blinds, keeping the lights off, minimizing noise, etc. Daughter is agreeable. - Further management from primary team Qualifiers: Altered mental status type: delirium Qualified Code(s): R41.0 - Disorientation, unspecified (5) CHF exacerbation Current Visit: Yes Status: Acute - Questionable new diagnosis of congestive heart failure with preserved ejection fraction. - Patient was recently placed on Lasix by her primary care physician after what the daughter describes as a chest x-ray showing vascular congestion. She is unsure if she has had a previous echocardiogram. - Echo showed an EF of 60%, mild LVH, moderate left ventricular diastolic dysfunction, normal right ventricular function, mild to moderate aortic stenosis , pulmonary hypertension with RVSP of 40. - Significant abnormal findings were a thickened pericardium, moderate to large pericardial effusion, and a pleural effusion. No subcostal view was able to be obtained. Unable to view EKG, will repeat today. - Recommended continued current care, patient does not appear to be acutely volume overloaded and her breathing issues yesterday responded very well to BiPAP. She is currently off BiPAP, saturating well and in no respiratory distress. Non-oliguric - Daily weights, low-salt diet, continued symptomatic care Qualifiers: Congestive heart failure type: unspecified congestive heart failure type Qualified Code(s): I50.9 - Heart failure, unspecified (6) Anemia Current Visit: Yes Status: Acute - Unclear etiology, denies any melena, hematochezia, hemoptysis - Would consider 1U PRBC transfusion given patients elevated troponin. However, will defer to primary team and attending physician. - Monitor closely Qualifiers: Anemia type: unspecified type Qualified Code(s): D64.9 - Anemia, unspecified (7) Acute and chronic respiratory failure Current Visit: Yes Status: Acute - ABG initially showed the patient to be hypercapnic. Patient was placed on BiPAP yesterday and seemed to respond very well. Upon my examination, she was off BiPAP and on 4 L nasal cannula, saturating 98%. She is in no acute distress , no respiratory distress, no accessory muscle use. - Continued symptomatic care per primary team Qualifiers: Respiratory failure complication: hypoxia and hypercapnia Qualified Code(s) : J96.21 - Acute and chronic respiratory failure with hypoxia; J96.22 - Acute and chronic respiratory failure with hypercapnia Discussion w patient/family: The assessment and plan as outlined above was discussed with the patient and/or family members who expressed understanding and agreement. All questions were answered. Thank you for involving us in the care of your patient. Please call with any questions. History of Present Illness Consult date: 10/18/16 Requesting physician: Marcos Pennington Consult reason: Pericardial effusion, elevated troponin Chief complaint: Confusion History of present illness: Ms. Cortez is a 85 year old female with a history of CHF, CAD, hypertension , hyperlipidemia, MD, CVA, COPD, and GERD who presented to the ED on 10/17 with the chief complaint of increasing weakness and confusion. Patient's daughter reports that the patient was recently diagnosed with congestive heart failure and was recently placed on Lasix at her [place] [facility]. Reports that over the last 2 weeks, the patient has been experiencing gradually increasing weakness and shortness of breath. Reports that over the last 2 days she has had an increase in confusion that is worse than her baseline. When she presented to the emergency department, she had a chest x-ray which showed a retrocardiac consolidation concerning for left lower lobe pneumonia. She underwent echocardiogram on 10/17 which showed an EF of 60%, mild LVH, moderate left ventricular diastolic dysfunction, mild to moderate aortic stenosis, mild pulmonary hypertension, a thickened pericardium with a moderate to large pericardial effusion without signs of tamponade, also noted was a pleural effusion. She was admitted to the medicine service for further management. Initial troponin was 0.08 and no repeat has been obtained at this time. Upon my examination today, the patient is only complaining of a headache. She is unable to further describe her headache and is unsure when it started. She denies any chest pain or difficulty breathing. She denies any fever, changes in vision, numbness or weakness, abdominal pain, diarrhea, rash, melena, hematochezia, or hemoptysis. The patient's daughter does state that she had one episode of nausea and vomiting just a few minutes ago. Patient was also placed on BiPAP yesterday and has since been taken off. Past Med Surg Social Fam HX - Past Medical History Medical history: CHF, coronary artery disease, CVA, GERD, hyperlipidemia, hypertension, myocardial infarction Psychiatric history: anxiety, depression - Past Surgical History Surgical History: appendectomy, cholecystectomy, hysterectomy, other - Social History Smoking Status: Never smoker Smokeless Tobacco Status: No Alcohol use: none Drug use: none - Family History Mother Living Status: Father Living Status: Daughter Hx Family Cancer: Yes (lung) Medications and Allergies Allopurinol [Zyloprim 100 MG] 100 mg PO DAILY 02/06/16 [History] Ascorbic Acid [Vitamin C] 500 mg PO DAILY 02/06/16 [History] Calcium Carbonate [Tums] 1 tab PO QID PRN 02/06/16 [History] Calcium Carbonate/Vitamin D3 [[place]yster [place] 500-Vit D3 200 Tb] 1 tab PO DAILY 04/16 [History] Cholecalciferol (Vitamin D3) [Vitamin D3] 5,000 units PO 3XW 02/06/16 [History] Clopidogrel [Plavix] 75 mg PO DAILY 02/06/16 [History] Cyanocobalamin (Vitamin B-12) [Vitamin B-12] 1 tab PO DAILY 02/06/16 [History] Folic Acid 1 mg PO DAILY 02/06/16 [History] Mag Hydrox/Al Hydrox/Simeth [Maalox] 30 ml PO QID PRN 02/06/16 [History] Menthol/Camphor [Polar Freeze Gel] 1 appl TP BID PRN #0 02/06/16 [History] Mirtazapine 7.5 mg PO HS 02/06/16 [History] Multivitamin [Multivitamins] 1 cap PO DAILY 02/06/16 [History] Petrolatum,White [Vaseline] 1 appl TP DAILY PRN 02/06/16 [History] Pyridoxine (B-6) [Vitamin B-6] 100 mg PO DAILY 02/06/16 [History] Ranitidine HCl [Heartburn Relief] 150 mg PO BID 02/06/16 [History] Ropinirole HCl [Requip] 0.5 mg PO BID 02/06/16 [History] Terconazole Vag CRM [Terazol] 1 appl VG DAILY PRN #0 02/06/16 [History] Vit C/E/Zn/Coppr/Lutein/Zeaxan [Ocuvite Lutein & Zeaxanthin Cp] 1 cap PO DAILY 02/06/16 [History] Isosorbide MONOnitrate (24 HR) [Imdur] 30 mg PO DAILY #30 tab.er.24h 02/08/16 [ Rx] Lidocaine HCl [Aspercreme] 1 appl TP AD 05/08/16 [History] Pantoprazole Sodium [Protonix] 20 mg PO DAILY 05/08/16 [History] Amlodipine [Norvasc] 10 mg PO DAILY tablet 05/12/16 [Rx] Magnesium Oxide [Magnesium] 400 mg PO DAILY #0 05/12/16 [Rx] Quetiapine Fumarate [Seroquel] 12.5 mg PO BID #30 tablet 05/12/16 [Rx] Thiamine (B-1) [Vitamin B-1] 100 mg PO DAILY tablet 05/12/16 [Rx] Cranberry Fruit Concentrate [Cranberry] 450 mg PO BID 09/17/16 [History] Furosemide [Lasix] 40 mg PO DAILY 09/17/16 [History] Metoprolol XL (24 HR) Succ [Toprol Xl] 25 mg PO BID 09/17/16 [History] Morphine Sulfate [Morphine Sulfate ER] 30 mg PO BID 09/17/16 [History] Capsaicin 0.025% [Trixaicin] 1 appl TP QID PRN #1 tube 09/21/16 [Rx] Hydrocodone/Acetaminophen [[place] 5-325 Tablet] 1 tab PO Q6H PRN #10 tab [Rx] LORazepam [Ativan] 0.5 mg PO BID #20 tablet 09/21/16 [Rx] Acetaminophen [Tylenol] 650 mg PO Q6HR PRN 10/17/16 [History] Ipratropium/Albuterol Neb [Duoneb] 3 ml IH BID 10/17/16 [History] Lisinopril 2.5 mg PO DAILY 10/17/16 [History] Allergies ibuprofen [From Motrin] Allergy (Verified 11/08/15 00:21) Hives niacin Allergy (Verified 11/08/15 00:21) Hives Sulfa (Sulfonamide Antibiotics) Allergy (Verified 05/08/16 12:37) Hives All Systems Review: A 10-system review of systems was performed and is negative for pertinent findings except as documented above in the HPI. - Constitutional Constitutional: headache(s), no anorexia, no fatigue, no lethargy - EENT Eyes: no blurred vision Nose, mouth and throat: no dysphagia - Cardiovascular Cardiovascular: no chest pain at rest, no dyspnea at rest, no palpitations, no syncope - Respiratory Respiratory: no cough, no dyspnea - Gastrointestinal Gastrointestinal: nausea, no abdominal pain, no coffee ground emesis, no diarrhea, no hematemesis, no hematochezia, no melena - Musculoskeletal Musculoskeletal: no back pain - Integumentary Integumentary: no rash - Neurological Neurological: no abnormal speech, no focal weakness, no loss of vision, no numbness, no syncope - Hematological/Lymphatic Hematologic/Lymphatic: no easy bleeding, no easy bruising Physical Examination Vital Signs, Last 4 Hours Temp Pulse Resp BP Pulse Ox 10/18/16 13:10 91 10/18/16 12:50 90 10/18/16 11:36 18 98 10/18/16 10:53 97.8 F 90 14 110/50 96 General: Conversant (somewhat slow to respond but does answer questions appropriately), No Apparent Distress HEENT: Atraumatic, Normocephaly, Mucus Membranes Moist Neck: No JVD, Normal carotid pulses Cardiac: Reg Rate and Rhythm, Normal S1 and S2, No Murmur (Possible faint systolic murmur at the right upper sternal border, however patient is on contact precautions and disposable stethoscope is not ideal) Lungs: Normal Breath Sounds, No Wheeze, Rales, Rhonchi Neuro: Alert and responsive (Patient somewhat slow to respond and is mildly confused. Patient's daughter reports that this is a slight decrease from her baseline), No focal deficits noted Abdomen: Soft, Non-Tender Skin: No rashes noted on visualized skin Musculoskeletal: No Chest Wall Tenderness Extremities: No Clubbing, No Cyanosis, No Edema, Normal Pulses Results 10/18/16 05:01 10/18/16 05:01 Lab Results 10/18/16 10/18/16 05:01 05:01 WBC 7.3 Hgb 7.2 L Hct 22.6 L Plt Count 274 Sodium 134 L Potassium 5.0 H Chloride 99 Carbon Dioxide 27 BUN 81 H Creatinine 2.90 H Glucose 98 Calcium 8.8 - Imaging and Cardiology Chest Xray: report reviewed, image reviewed Echo: report reviewed Consult Discharge Plan - Plan Referrals: Sancho Olvera MD [Primary Care Provider] -
--- NOTE | 2016-10-18 15:20 | Internal Med Progress Note ---
Date of Encounter: 10/18/16 Time of Encounter: 15:18 - Assessment and plan (1) Acute and chronic respiratory failure Current Visit: Yes Status: Acute Assessment and plan: Improving. Continue O2 supplementation. The FiO2 as tolerated. BiPAP use as needed. Treat underlying conditions. Qualifiers: Respiratory failure complication: hypoxia and hypercapnia Qualified Code(s) : J96.21 - Acute and chronic respiratory failure with hypoxia; J96.22 - Acute and chronic respiratory failure with hypercapnia (2) Acute encephalopathy Current Visit: Yes Status: Resolved Assessment and plan: This has resolved now. Patient is back to her baseline mental status (3) Acute on chronic renal insufficiency Current Visit: Yes Status: Acute Assessment and plan: Creatinine 2.9 today. Will monitor renal function. Avoid nephrotoxic agents. (4) Anemia Current Visit: Yes Status: Acute Assessment and plan: Likely due to chronic kidney disease. Hemoglobin 7.2 today. Will transfuse as needed. Monitor H&H. Qualifiers: Anemia type: other cause Other causes of anemia: chronic disease, kidney Qualified Code(s): N18.9 - Chronic kidney disease, unspecified; D63.1 - Anemia in chronic kidney disease (5) CHF exacerbation Current Visit: Yes Status: Acute Assessment and plan: Acute on chronic diastolic heart failure. Chemically better after IV Lasix. Continue diuresis. Monitor input and output. Cardiology consultation. Qualifiers: Congestive heart failure type: diastolic Qualified Code(s): I50.33 - Acute on chronic diastolic (congestive) heart failure (6) Delirium due to general medical condition Current Visit: Yes Status: Acute (7) Elevated troponin I level Current Visit: Yes Status: Acute Assessment and plan: Likely from demand ischemia. (8) Pericardial effusion without cardiac tamponade Current Visit: Yes Status: Acute Assessment and plan: Cardiology consulted. 2-D echocardiogram shows moderate to large pericardial effusion. Will follow cardiology recommendations. - Subjective Interval history: Patient is feeling better today. No significant shortness of breath. No chest pain at this time. No dizziness or lightheadedness. No nausea or vomiting. - Constitutional Vitals: Temp Pulse Resp BP Pulse Ox 97.8 F 91 18 110/50 98 10/18/16 10:53 10/18/16 13:10 10/18/16 11:36 10/18/16 10:53 10/18/16 11:36 General appearance: Present: cooperative, A&O X 2, pleasant, answers questions appropriately - Respiratory Respiratory exam: Present: CTAB. Absent: accessory muscle use, rales, rhonchi, wheezes - Cardiovascular Cardiovascular exam: Present: RRR, +S1, +S2, systolic murmur. Absent: diastolic murmur, gallop, rubs - Extremities Exam Extremities exam: Present: warm, radial pulses palpable and symetrical. Absent : calf tenderness, cyanotic, pedal edema - Neurological Exam Neurological exam: Present: CN II-XII intact, oriented X3, no focal deficits. Absent: facial droop, speech deficit - Skin Skin exam: Present: dry, intact Internal Medicine: Result - Labs CBC & Chem 7: 10/18/16 05:01 10/18/16 05:01 Labs: Short CBC 10/18/16 Range/Units 05:01 WBC 7.3 (4.3-11.1) K/mcL Hgb 7.2 L (11.5-15.4) g/dL Hct 22.6 L (35.3-44.9) % Plt Count 274 (140-400) K/mcL Neutrophils # 4.9 (1.6-8.9) K/mcL BMP 10/18/16 05:01 Sodium 134 L Potassium 5.0 H Chloride 99 Carbon Dioxide 27 BUN 81 H Creatinine 2.90 H Glucose 98 Calcium 8.8 - ABG Interpretation ABG results: ABG ABG pH 7.39 pH Units (7.32-7.45) 10/17/16 20:53 ABG pCO2 55 mmHg (35-45) H 10/17/16 20:53 ABG pO2 104 mmHg (85-104) 10/17/16 20:53 ABG O2 Saturation 98 % (95-98) 10/17/16 20:53 PT/INR, D-dimer PT 13.9 Seconds (9.4-12.1) H 10/17/16 12:13 Consult Discharge Plan - Plan Referrals: Sancho Olvera MD [Primary Care Provider] - - Attending Attestation This document has been at least partially created by [employer] recognition technology by Dr. Reece. Errors in grammar, wording or other phrases may exist. If errors are found after the documentation is signed, they will be addressed individually in the addendum section of this document when appropriate. Medical Decision Making - MDM Narrative Medical decision making narrative: High risk for complications - Medical Records Medical records reviewed: Yes I reviewed the patient's medical records. - Lab Data Lab results reviewed: Yes I reviewed the patient's lab results. Result diagrams: 10/18/16 05:01 10/18/16 05:01 Lab Results 10/17/16 10/17/16 10/18/16 Range/Units 12:54 20:53 05:01 WBC 7.3 (4.3-11.1) K/mcL RBC 2.59 L (3.82-4.97) M/mcL Hgb 7.2 L (11.5-15.4) g/dL Hct 22.6 L (35.3-44.9) % MCV 87.3 (83.0-100.0) fL MCH 27.8 L (28.0-33.3) pg MCHC 31.9 (31.6-35.5) g/dL RDW 14.7 H (11.5-14.5) % Plt Count 274 (140-400) K/mcL MPV 9.2 L (9.4-12.4) fL Immature Gran % 0.4 (0-4) % Seg Neutrophils % 68.0 % Lymphocytes % 15.6 % Monocytes % 14.5 % Eosinophils % 1.4 % Basophils % 0.1 % Neutrophils # 4.9 (1.6-8.9) K/mcL Lymphocytes # 1.1 (0.6-4.6) K/mcL Monocytes # 1.1 (0.0-1.3) K/mcL Eosinophils # 0.1 (0.0-0.6) K/mcL Basophils # 0.0 (0.0-0.2) K/mcL ABG pH 7.39 (7.32-7.45) pH Units ABG pCO2 55 H (35-45) mmHg ABG pO2 104 (85-104) mmHg ABG HCO3 33.3 H (21-27) mEQ/L ABG Total CO2 35.0 H (20-26) mEq/L ABG O2 Saturation 98 (95-98) % ABG Base Excess 7.4 H (-2.0 to 3.0) mEq/L Blood Gas Modality BIPAP Inspired O2 50 % Sodium (136-145) mEq/L Potassium (3.5-4.5) mEq/L Chloride (98-109) mEq/L Carbon Dioxide (19-29) mEq/L BUN (7-20) mg/dL Creatinine (0.57-1.11) mg/dL Est GFR ( Amer) (> 60) Est GFR (Non-Af Amer) (> 60) BUN/Creatinine Ratio (6-26) Glucose (70-99) mg/dL Calculated Osmolality (280-300) Calcium (8.6-10.8) mg/dL Urine Color Yellow (Yellow) Urine Clarity Cloudy A (Clear) Urine pH 5.0 (5.0-8.0) pH Units Ur Specific [place] 1.009 L (1.010-1.025) Urine Protein Trace (Neg-Trace) mg/dL Urine Glucose (UA) Normal (Normal) mg/dL Urine Ketones Negative (Negative) mg/dL Urine Blood Negative (Negative) Urine Nitrite Negative (Negative) Urine Bilirubin Negative (Negative) Urine Urobilinogen Normal (Normal) mg/dL Ur Leukocyte Esterase Negative (Negative) Urine Microscopic RBC 0-3 (0-3) per hpf Urine Microscopic WBC 0-3 (0-3) per hpf Ur Squamous Epith Cells Moderate H (None-Few) per lpf Urine Bacteria None Seen (None-Few) per hpf Hyaline Casts Few (None-Few) per lpf Ur Culture Indicated? NO (NO) 10/18/16 Range/Units 05:01 WBC (4.3-11.1) K/mcL RBC (3.82-4.97) M/mcL Hgb (11.5-15.4) g/dL Hct (35.3-44.9) % MCV (83.0-100.0) fL MCH (28.0-33.3) pg MCHC (31.6-35.5) g/dL RDW (11.5-14.5) % Plt Count (140-400) K/mcL MPV (9.4-12.4) fL Immature Gran % (0-4) % Seg Neutrophils % % Lymphocytes % % Monocytes % % Eosinophils % % Basophils % % Neutrophils # (1.6-8.9) K/mcL Lymphocytes # (0.6-4.6) K/mcL Monocytes # (0.0-1.3) K/mcL Eosinophils # (0.0-0.6) K/mcL Basophils # (0.0-0.2) K/mcL ABG pH (7.32-7.45) pH Units ABG pCO2 (35-45) mmHg ABG pO2 (85-104) mmHg ABG HCO3 (21-27) mEQ/L ABG Total CO2 (20-26) mEq/L ABG O2 Saturation (95-98) % ABG Base Excess (-2.0 to 3.0) mEq/L Blood Gas Modality Inspired O2 % Sodium 134 L (136-145) mEq/L Potassium 5.0 H (3.5-4.5) mEq/L Chloride 99 (98-109) mEq/L Carbon Dioxide 27 (19-29) mEq/L BUN 81 H (7-20) mg/dL Creatinine 2.90 H (0.57-1.11) mg/dL Est GFR ( Amer) 19 L (> 60) Est GFR (Non-Af Amer) 15 L (> 60) BUN/Creatinine Ratio 28 H (6-26) Glucose 98 (70-99) mg/dL Calculated Osmolality 302 H (280-300) Calcium 8.8 (8.6-10.8) mg/dL Urine Color (Yellow) Urine Clarity (Clear) Urine pH (5.0-8.0) pH Units Ur Specific [place] (1.010-1.025) Urine Protein (Neg-Trace) mg/dL Urine Glucose (UA) (Normal) mg/dL Urine Ketones (Negative) mg/dL Urine Blood (Negative) Urine Nitrite (Negative) Urine Bilirubin (Negative) Urine Urobilinogen (Normal) mg/dL Ur Leukocyte Esterase (Negative) Urine Microscopic RBC (0-3) per hpf Urine Microscopic WBC (0-3) per hpf Ur Squamous Epith Cells (None-Few) per lpf Urine Bacteria (None-Few) per hpf Hyaline Casts (None-Few) per lpf Ur Culture Indicated? (NO) - Radiology Data Radiology results reviewed: Yes I reviewed the patient's radiology results.
[2016-10-18] MEDS ORDERED: *HR* LORazepam 0.5 MG TABLET PO ONE (16:20)
--- NOTE | 2016-10-18 17:11 | Electrocardiograph Report ---
[facility] Test Date: 2016-10-17 Pat Name: Aubrey Cortez Department: 103 Room: 2N09 Gender: F [employer]: LOLI : 1930 Requested By: Brooks Kay Order Number: [id number] Reading MD: Sarah Zarate Measurements Intervals [place] Rate: 100 P: 55 HI: 152 QRS: -39 QRSD: 106 T: 132 QT: 342 QTc: 399 Interpretive Statements SINUS TACHYCARDIA MARKED LEFT AXIS DEVIATION SEPTAL MYOCARDIAL INFARCTION, PROBABLY OLD MODERATE T-WAVE ABNORMALITY, CONSIDER LATERAL ISCHEMIA Electronically Signed On 10-18-16 17:10:01 EST by Sarah Zarate
[2016-10-18 20:08] LABS: Hematocrit 28.6 % (35.3-44.9)
[2016-10-18] MEDS: Mirtazapine 15 MG TABLET PO SCH (21:13)
[2016-10-18] MEDS: Famotidine 20 MG TABLET PO SCH (21:13)
[2016-10-19] MEDS: *HR* Morphine Sulfate SR (12 HR) 30 MG TABLET.ER PO SCH ×3 (00:40→11:58)
[2016-10-19] MEDS: Piperacillin/Tazobactam 3.375 GM in D5% in Water (Mini-Bag+) 100 ML IVPB SCH (00:48)
[2016-10-19 04:34] LABS: Basophils % 0.2 %; Eosinophils # 0.1 K/mcL (0.0-0.6); Hematocrit 24.7 % (35.3-44.9); Hemoglobin 7.7 g/dL (11.5-15.4); Immature Granulocytes % 0.5 % (0-4); Mean Corpuscular HGB Conc 31.2 g/dL (31.6-35.5); Mean Corpuscular Hemoglobin 26.9 pg (28.0-33.3); Mean Corpuscular Volume 86.4 fL (83.0-100.0); Mean Platelet Volume 9.1 fL (9.4-12.4); Monocytes # 0.8 K/mcL (0.0-1.3); Monocytes % 13.7 %; Platelet Count 305 K/mcL (140-400); Red Blood Count 2.86 M/mcL (3.82-4.97); Red Cell Distribution Width 14.7 % (11.5-14.5); Segmented Neutrophils % 66.6 %
[2016-10-19 04:48] LABS: Calcium 9.1 mg/dL (8.6-10.8); Potassium 4.8 mEq/L (3.5-4.5)
--- NOTE | 2016-10-19 07:59 | Cardiology Progress Note ---
Date of Encounter: 10/19/16 Time of Encounter: 07:57 Assessment and Plan (1) Pericardial effusion without cardiac tamponade Current Visit: Yes Status: Acute - Remains hemodynamically stable - Patient is a DNR CC. Family did not want invasive management at this time, will monitor hemodynamics and repeat echo - Unclear etiology but could be related to patient's uremia - Repeat limited ECHO pending, if stable/improved, will likely sign off and recommend outpatient follow up with a repeat exam in 2-3 weeks. (2) Elevated troponin I level Current Visit: Yes Status: Acute - Initial Troponin 0.08, no associated chest pain, no further intervention required - Continue home meds - Maintain continuous cardiac monitoring (3) HTN (hypertension) Current Visit: No Status: Chronic - Well-controlled, continue current medication. Qualifiers: Qualified Code(s): I15.9 - Secondary hypertension, unspecified; I15 - Secondary hypertension (4) Altered mental status Current Visit: No Status: Acute - Resolved, back to baseline per family. - Daughter reported that it seems to be worse at night. Could be developing sundowner syndrome. We did discuss therapies to minimize this, such as opening blinds during the day and keeping the lights on, as well as giving the patient many comforts of home that she is used to, such as hearing aids and glasses. Then, in the evening, closing the blinds, keeping the lights off, minimizing noise, etc. Daughter is agreeable. - Further management from primary team Qualifiers: Qualified Code(s): R41.0 - Disorientation, unspecified (5) CHF exacerbation Current Visit: Yes Status: Acute - Questionable new diagnosis of congestive heart failure with preserved ejection fraction. - Patient was recently placed on Lasix by her primary care physician after what the daughter describes as a chest x-ray showing vascular congestion. She is unsure if she has had a previous echocardiogram. - Echo showed an EF of 60%, mild LVH, moderate left ventricular diastolic dysfunction, normal right ventricular function, mild to moderate aortic stenosis , pulmonary hypertension with RVSP of 40. - Significant abnormal findings were a thickened pericardium, moderate to large pericardial effusion, and a pleural effusion. No subcostal view was able to be obtained. Unable to view EKG, will repeat today. - Recommended continued current care. - Non-oliguric - Daily weights, low-salt diet, continued symptomatic care Qualifiers: Qualified Code(s): I50.33 - Acute on chronic diastolic (congestive) heart failure (6) Anemia Current Visit: Yes Status: Acute - Unclear etiology, denies any melena, hematochezia, hemoptysis - Yesterday HGB 9.0, down to 7.7 again today - Monitor closely - Consider GI consultation - Further management per primary team Qualifiers: Qualified Code(s): N18.9 - Chronic kidney disease, unspecified; D63.1 - Anemia in chronic kidney disease (7) Acute and chronic respiratory failure Current Visit: Yes Status: Acute - No acute issues, has only required BiPAP for 30min over last 24 hours. - Continued symptomatic care per primary team Qualifiers: Qualified Code(s): J96.21 - Acute and chronic respiratory failure with hypoxia; J96.22 - Acute and chronic respiratory failure with hypercapnia Discussion w patient/family: The assessment and plan as outlined above was discussed with the patient and/or family members who expressed understanding and agreement. All questions were answered. Thank you for involving us in the care of your patient. Please call with any questions. Subjective Principal diagnosis: pericardial effusion Interval history: No acute events overnight, only required BiPAP for 30 minutes. Denies any other issues. Objective Vital Signs, Last 4 Hours Temp Pulse Resp BP 10/19/16 04:15 98.2 F 81 14 113/56 General: Conversant, No Apparent Distress HEENT: Atraumatic, Normocephaly, Mucus Membranes Moist Neck: No JVD, Normal carotid pulses Cardiac: Reg Rate and Rhythm, Normal S1 and S2, No Murmur Lungs: Normal Breath Sounds, No Wheeze, Rales, Rhonchi Neuro: Alert and responsive, No focal deficits noted Abdomen: Soft, Non-Tender Skin: No rashes noted on visualized skin Musculoskeletal: No Chest Wall Tenderness Extremities: No Clubbing, No Cyanosis, No Edema, Normal Pulses Other: family reports back to patients baseline Results 10/19/16 04:16 10/19/16 04:16 Lab Results 10/18/16 10/19/16 10/19/16 19:51 04:16 04:16 WBC 5.9 Hgb 9.0 L D 7.7 L Hct 28.6 L 24.7 L Plt Count 305 Sodium 138 Potassium 4.8 H Chloride 98 Carbon Dioxide 28 BUN 77 H Creatinine 2.99 H Glucose 98 Calcium 9.1 - Imaging and Cardiology Echo: pending - EKG Interpretation EKG results cardiology: other (repeating today) Consult Discharge Plan - Plan Referrals: Sancho Olvera MD [Primary Care Provider] -
[2016-10-19] MEDS: Folic Acid 1 MG TABLET PO SCH (09:20)
[2016-10-19] MEDS: Thiamine (B-1) 100 MG TABLET PO SCH (09:21)
[2016-10-19] MEDS: Isosorbide MONOnitrate (24 HR) 30 MG TAB.ER.24H PO SCH (09:21)
[2016-10-19] MEDS: Multivit/Ca/Min/Fe/FA 1 TAB TABLET PO SCH (09:21)
[2016-10-19] MEDS: Pyridoxine (B-6) 50 MG TABLET PO SCH (09:21)
[2016-10-19] MEDS: Cholecalciferol (D-3) 1,000 UNIT TABLET PO SCH (09:21)
[2016-10-19] MEDS: Magnesium Oxide 400 MG TABLET PO SCH (09:21)
[2016-10-19] MEDS: Ascorbic Acid 500 MG TABLET PO SCH (09:22)
[2016-10-19] MEDS: Furosemide 40 MG/4 ML VIAL IVP SCH (09:22)
[2016-10-19] MEDS: *HR* LORazepam 0.5 MG TABLET PO SCH (09:22)
[2016-10-19] MEDS: Metoprolol XL (24 HR) Succ 25 MG TAB.ER.24H PO SCH (09:22)
[2016-10-19] MEDS: amLODIPine 5 MG TABLET PO SCH (09:22)
[2016-10-19] MEDS: CALCIUM CARBONATE PO SCH (09:23)
[2016-10-19] MEDS: (Cranberry Fruit Concentrate [Cranberry] 450 MG) PO SCH (09:23)
[2016-10-19] MEDS: VITAMIN D3 PO SCH (09:23)
[2016-10-19] MEDS: CYANOCOBALAMIN PO SCH (09:23)
--- NOTE | 2016-10-19 09:29 | Internal Med Progress Note ---
Date of Encounter: 10/19/16 Time of Encounter: 09:00 - Assessment and plan (1) Acute and chronic respiratory failure Current Visit: Yes Status: Acute Assessment and plan: Improving. Continue O2 supplementation. Qualifiers: Respiratory failure complication: hypoxia and hypercapnia Qualified Code(s) : J96.21 - Acute and chronic respiratory failure with hypoxia; J96.22 - Acute and chronic respiratory failure with hypercapnia (2) Pericardial effusion without cardiac tamponade Current Visit: Yes Status: Acute Assessment and plan: Cardiology following. No signs of tamponade at this time. Medical management. Repeat echo in 2-3 weeks (3) Acute encephalopathy Current Visit: Yes Status: Resolved (4) Acute on chronic renal insufficiency Current Visit: Yes Status: Acute Assessment and plan: BUN 77 today. Creatinine is slightly worse at 2.99. Consider nephrology consult for further recommendations with patient is DNR comfort care and wishes to go home and does not want any aggressive treatment. We will consult palliative care at this time and follow recommendations. Patient can also follow with nephrology as outpatient for further management of her chronic kidney disease. (5) Anemia Current Visit: Yes Status: Acute Assessment and plan: Hemoglobin 7.7 today. We will check iron levels, folic acid and B12 levels. Given her uremia, patient may also be having chronic mild GI bleed. We will check stool for occult blood. Qualifiers: Anemia type: other cause Other causes of anemia: chronic disease, kidney Qualified Code(s): N18.9 - Chronic kidney disease, unspecified; D63.1 - Anemia in chronic kidney disease (6) CHF exacerbation Current Visit: Yes Status: Acute Assessment and plan: On Lasix. Will transition to oral dosage. Qualifiers: Congestive heart failure type: diastolic Qualified Code(s): I50.33 - Acute on chronic diastolic (congestive) heart failure (7) Delirium due to general medical condition Current Visit: Yes Status: Resolved (8) Elevated troponin I level Current Visit: Yes Status: Acute Assessment and plan: Likely due to combination of ischemia, chronic kidney disease and mild troponin leak. - Subjective Interval history: Patient currently denies any complaints. Feeling all right. Denies any chest pain. No shortness of breath. No orthopnea or PND. She did not require BiPAP use last night. - Constitutional Vitals: Temp Pulse Resp BP Pulse Ox 98.2 F 81 14 113/56 93 L 01/18/17 04:15 10/19/16 04:15 10/19/16 04:15 10/19/16 04:15 10/19/16 00:00 General appearance: Present: cooperative, A&O X 2, mild distress, pleasant, answers questions appropriately - Respiratory Respiratory exam: Present: CTAB. Absent: accessory muscle use, rales, rhonchi, wheezes - Cardiovascular Cardiovascular exam: Present: RRR, +S1, +S2, systolic murmur. Absent: diastolic murmur, gallop, rubs - GI/Abdominal GI/Abdominal exam: Present: normal bowel sounds, soft, no peritoneal signs. Absent: distended, tenderness - Extremities Exam Extremities exam: Present: warm, radial pulses palpable and symetrical. Absent : calf tenderness, cyanotic, pedal edema - Psychiatric Psychiatric exam: Present: flat affect - Skin Skin exam: Present: dry, intact Internal Medicine: Result - Labs CBC & Chem 7: 10/19/16 04:16 10/19/16 04:16 Labs: Short CBC 10/18/16 10/19/16 Range/Units 19:51 04:16 WBC 5.9 (4.3-11.1) K/mcL Hgb 9.0 L D 7.7 L (11.5-15.4) g/dL Hct 28.6 L 24.7 L (35.3-44.9) % Plt Count 305 (140-400) K/mcL Neutrophils # 4.0 (1.6-8.9) K/mcL BMP 10/19/16 04:16 Sodium 138 Potassium 4.8 H Chloride 98 Carbon Dioxide 28 BUN 77 H Creatinine 2.99 H Glucose 98 Calcium 9.1 - ABG Interpretation ABG results: ABG ABG pH 7.39 pH Units (7.32-7.45) 10/17/16 20:53 ABG pCO2 55 mmHg (35-45) H 10/17/16 20:53 ABG pO2 104 mmHg (85-104) 10/17/16 20:53 ABG O2 Saturation 98 % (95-98) 10/17/16 20:53 PT/INR, D-dimer PT 13.9 Seconds (9.4-12.1) H 10/17/16 12:13 Consult Discharge Plan - Plan Referrals: Sancho Olvera MD [Primary Care Provider] - - Attending Attestation This document has been at least partially created by [employer] recognition technology by Dr. Reece. Errors in grammar, wording or other phrases may exist. If errors are found after the documentation is signed, they will be addressed individually in the addendum section of this document when appropriate. Medical Decision Making - MDM Narrative Medical decision making narrative: High risk for complications - Medical Records Medical records reviewed: Yes I reviewed the patient's medical records. - Lab Data Lab results reviewed: Yes I reviewed the patient's lab results. Result diagrams: 10/19/16 04:16 10/19/16 04:16 Lab Results 10/17/16 10/17/16 10/18/16 Range/Units 12:54 20:53 05:01 WBC 7.3 (4.3-11.1) K/mcL RBC 2.59 L (3.82-4.97) M/mcL Hgb 7.2 L (11.5-15.4) g/dL Hct 22.6 L (35.3-44.9) % MCV 87.3 (83.0-100.0) fL MCH 27.8 L (28.0-33.3) pg MCHC 31.9 (31.6-35.5) g/dL RDW 14.7 H (11.5-14.5) % Plt Count 274 (140-400) K/mcL MPV 9.2 L (9.4-12.4) fL Immature Gran % 0.4 (0-4) % Seg Neutrophils % 68.0 % Lymphocytes % 15.6 % Monocytes % 14.5 % Eosinophils % 1.4 % Basophils % 0.1 % Neutrophils # 4.9 (1.6-8.9) K/mcL Lymphocytes # 1.1 (0.6-4.6) K/mcL Monocytes # 1.1 (0.0-1.3) K/mcL Eosinophils # 0.1 (0.0-0.6) K/mcL Basophils # 0.0 (0.0-0.2) K/mcL ABG pH 7.39 (7.32-7.45) pH Units ABG pCO2 55 H (35-45) mmHg ABG pO2 104 (85-104) mmHg ABG HCO3 33.3 H (21-27) mEQ/L ABG Total CO2 35.0 H (20-26) mEq/L ABG O2 Saturation 98 (95-98) % ABG Base Excess 7.4 H (-2.0 to 3.0) mEq/L Blood Gas Modality BIPAP Inspired O2 50 % Sodium (136-145) mEq/L Potassium (3.5-4.5) mEq/L Chloride (98-109) mEq/L Carbon Dioxide (19-29) mEq/L BUN (7-20) mg/dL Creatinine (0.57-1.11) mg/dL Est GFR ( Amer) (> 60) Est GFR (Non-Af Amer) (> 60) BUN/Creatinine Ratio (6-26) Glucose (70-99) mg/dL Calculated Osmolality (280-300) Calcium (8.6-10.8) mg/dL Urine Color Yellow (Yellow) Urine Clarity Cloudy A (Clear) Urine pH 5.0 (5.0-8.0) pH Units Ur Specific [place] 1.009 L (1.010-1.025) Urine Protein Trace (Neg-Trace) mg/dL Urine Glucose (UA) Normal (Normal) mg/dL Urine Ketones Negative (Negative) mg/dL Urine Blood Negative (Negative) Urine Nitrite Negative (Negative) Urine Bilirubin Negative (Negative) Urine Urobilinogen Normal (Normal) mg/dL Ur Leukocyte Esterase Negative (Negative) Urine Microscopic RBC 0-3 (0-3) per hpf Urine Microscopic WBC 0-3 (0-3) per hpf Ur Squamous Epith Cells Moderate H (None-Few) per lpf Urine Bacteria None Seen (None-Few) per hpf Hyaline Casts Few (None-Few) per lpf Ur Culture Indicated? NO (NO) Vancomycin Trough (10-20) mcg/mL 10/18/16 10/18/16 10/18/16 Range/Units 05:01 16:45 19:51 WBC (4.3-11.1) K/mcL RBC (3.82-4.97) M/mcL Hgb 9.0 L D (11.5-15.4) g/dL Hct 28.6 L (35.3-44.9) % MCV (83.0-100.0) fL MCH (28.0-33.3) pg MCHC (31.6-35.5) g/dL RDW (11.5-14.5) % Plt Count (140-400) K/mcL MPV (9.4-12.4) fL Immature Gran % (0-4) % Seg Neutrophils % % Lymphocytes % % Monocytes % % Eosinophils % % Basophils % % Neutrophils # (1.6-8.9) K/mcL Lymphocytes # (0.6-4.6) K/mcL Monocytes # (0.0-1.3) K/mcL Eosinophils # (0.0-0.6) K/mcL Basophils # (0.0-0.2) K/mcL ABG pH (7.32-7.45) pH Units ABG pCO2 (35-45) mmHg ABG pO2 (85-104) mmHg ABG HCO3 (21-27) mEQ/L ABG Total CO2 (20-26) mEq/L ABG O2 Saturation (95-98) % ABG Base Excess (-2.0 to 3.0) mEq/L Blood Gas Modality Inspired O2 % Sodium 134 L (136-145) mEq/L Potassium 5.0 H (3.5-4.5) mEq/L Chloride 99 (98-109) mEq/L Carbon Dioxide 27 (19-29) mEq/L BUN 81 H (7-20) mg/dL Creatinine 2.90 H (0.57-1.11) mg/dL Est GFR ( Amer) 19 L (> 60) Est GFR (Non-Af Amer) 15 L (> 60) BUN/Creatinine Ratio 28 H (6-26) Glucose 98 (70-99) mg/dL Calculated Osmolality 302 H (280-300) Calcium 8.8 (8.6-10.8) mg/dL Urine Color (Yellow) Urine Clarity (Clear) Urine pH (5.0-8.0) pH Units Ur Specific [place] (1.010-1.025) Urine Protein (Neg-Trace) mg/dL Urine Glucose (UA) (Normal) mg/dL Urine Ketones (Negative) mg/dL Urine Blood (Negative) Urine Nitrite (Negative) Urine Bilirubin (Negative) Urine Urobilinogen (Normal) mg/dL Ur Leukocyte Esterase (Negative) Urine Microscopic RBC (0-3) per hpf Urine Microscopic WBC (0-3) per hpf Ur Squamous Epith Cells (None-Few) per lpf Urine Bacteria (None-Few) per hpf Hyaline Casts (None-Few) per lpf Ur Culture Indicated? (NO) Vancomycin Trough 15.9 (10-20) mcg/mL 10/19/16 10/19/16 Range/Units 04:16 04:16 WBC 5.9 (4.3-11.1) K/mcL RBC 2.86 L (3.82-4.97) M/mcL Hgb 7.7 L (11.5-15.4) g/dL Hct 24.7 L (35.3-44.9) % MCV 86.4 (83.0-100.0) fL MCH 26.9 L (28.0-33.3) pg MCHC 31.2 L (31.6-35.5) g/dL RDW 14.7 H (11.5-14.5) % Plt Count 305 (140-400) K/mcL MPV 9.1 L (9.4-12.4) fL Immature Gran % 0.5 (0-4) % Seg Neutrophils % 66.6 % Lymphocytes % 17.0 % Monocytes % 13.7 % Eosinophils % 2.0 % Basophils % 0.2 % Neutrophils # 4.0 (1.6-8.9) K/mcL Lymphocytes # 1.0 (0.6-4.6) K/mcL Monocytes # 0.8 (0.0-1.3) K/mcL Eosinophils # 0.1 (0.0-0.6) K/mcL Basophils # 0.0 (0.0-0.2) K/mcL ABG pH (7.32-7.45) pH Units ABG pCO2 (35-45) mmHg ABG pO2 (85-104) mmHg ABG HCO3 (21-27) mEQ/L ABG Total CO2 (20-26) mEq/L ABG O2 Saturation (95-98) % ABG Base Excess (-2.0 to 3.0) mEq/L Blood Gas Modality Inspired O2 % Sodium 138 (136-145) mEq/L Potassium 4.8 H (3.5-4.5) mEq/L Chloride 98 (98-109) mEq/L Carbon Dioxide 28 (19-29) mEq/L BUN 77 H (7-20) mg/dL Creatinine 2.99 H (0.57-1.11) mg/dL Est GFR ( Amer) 18 L (> 60) Est GFR (Non-Af Amer) 15 L (> 60) BUN/Creatinine Ratio 26 (6-26) Glucose 98 (70-99) mg/dL Calculated Osmolality 309 H (280-300) Calcium 9.1 (8.6-10.8) mg/dL Urine Color (Yellow) Urine Clarity (Clear) Urine pH (5.0-8.0) pH Units Ur Specific [place] (1.010-1.025) Urine Protein (Neg-Trace) mg/dL Urine Glucose (UA) (Normal) mg/dL Urine Ketones (Negative) mg/dL Urine Blood (Negative) Urine Nitrite (Negative) Urine Bilirubin (Negative) Urine Urobilinogen (Normal) mg/dL Ur Leukocyte Esterase (Negative) Urine Microscopic RBC (0-3) per hpf Urine Microscopic WBC (0-3) per hpf Ur Squamous Epith Cells (None-Few) per lpf Urine Bacteria (None-Few) per hpf Hyaline Casts (None-Few) per lpf Ur Culture Indicated? (NO) Vancomycin Trough (10-20) mcg/mL
[2016-10-19] MEDS: rOPINIRole 0.25 MG TABLET PO SCH (09:40)
[2016-10-19] MEDS: Ipratropium/Albuterol Neb 3 ML IH SCH (10:12)
--- NOTE | 2016-10-19 11:19 | ECHO - Doppler Report ---
Limited Echocardiogram Name: Aubrey Cortez Date of Study: 10/19/2016 Date: 1930 Ht: 59.0 in Medical Record#: [id number] Age: 85 Wt: 159.0 lb Gender: Female BSA: 1.67 Order #: [id number] Location: [facility] Room #: 2N09 Reading Physician: Perla Muro DO Brake Adjuster: Michael Ortiz RDCS Ordering Physician: Toño Eaton DO,[facility] Primary Physician: Sancho Olvera MD Indications: Pericardial Effusion Impressions: Large circumferential pericardial effusion measuring 2.4 cm in greatest diameter. No evidence for increased respiratory variation by Doppler. Significant respiratory influence of RV filling on 2-D (Image #16). RA inversion in late diastole appears to be present. IVC is not visualized on this study. Normal blood pressure. Some findings suggest early presence of tamponade. Findings communicated to Cardiology team. Findings: Study Quality * Technically adequate exam. ECG Findings * Normal sinus rhythm. Left Ventricle * LVEF 60-65%. * Mild to moderate concentric left ventricular hypertrophy. Right Ventricle * Normal right ventricular structure and function. Left Atrium * Normal left atrial size. Right Atrium * Normal right atrial size. Pericardium * There is a large pericardial effusion present. IVC * IVC was not visualized on this study. History Hypertension Hypercholesteremia History of CAD/PTCA Myocardial Infarction Congestive Heart Failure 10/17/16 a Previous Echo was performed. Measurements: BP: 113/ 56 2D Normal Values RVIDd: 3.06 cm <2.7 cm IVSd: 1.20 cm 0.6 - 1.0 cm LVIDd: 3.72 cm 3.7 - 5.6 cm LVPWd: 1.10 cm 0.6 - 1.1 cm LVIDs: 2.35 cm 1.5 - 3.6 cm %FS: 36.80 cm >25 % LA volume: Updated by Perla Muro on 10/19/2016 11:03:48 AM electronically signed on 10/19/2016 11:15:19 AM with status of [employer] [place]: 1=Normal, 2=Hypokinesis, 3=Akinesis, 4=Dyskinesis, 5=Aneurysmal, 6=Hyperkinetic, X=Not Visualized (Blank)=Missing
[2016-10-19] MEDS: LIDOCAINE HCL APPL TP SCH (11:50)
--- NOTE | 2016-10-19 11:50 | Palliative - Consult Note ---
Date of Encounter: 10/19/16 Time of Encounter: 11:30 - Assessment and Plan (1) Chronic pain Current Visit: Yes Status: Acute Assessment and plan: Continue MS Contin 30mg bid and Shidler for breakthrough as per ECF regimen. Has not required here. Qualifiers: Chronic pain type: other chronic pain Qualified Code(s): G89.29 - Other chronic pain (2) Agitation Current Visit: Yes Status: Acute Assessment and plan: Remains on low dose Seroquel BID and Ativan as well. Family states agitation has improved - still with some sundowning behaviors. (3) Counseling regarding advanced care planning and goals of care Current Visit: Yes Status: Acute Assessment and plan: Daughter states that family has decided to decline further investigation and aggressive testing, and most likely transition back to [facility] with hospice care. Daughter is leaving to go speak with mission coordinator at [facility] to discuss plan for transition and setting up hospice care there. She is to call me with final decision and will communicate to rest of healthcare team here. Continue to follow. (4) Pericardial effusion without cardiac tamponade Current Visit: Yes Status: Acute (5) Acute and chronic respiratory failure Current Visit: Yes Status: Acute Qualifiers: Respiratory failure complication: hypoxia and hypercapnia Qualified Code(s) : J96.21 - Acute and chronic respiratory failure with hypoxia; J96.22 - Acute and chronic respiratory failure with hypercapnia (6) Anemia Current Visit: Yes Status: Acute Qualifiers: Anemia type: other cause Other causes of anemia: chronic disease, kidney Qualified Code(s): N18.9 - Chronic kidney disease, unspecified; D63.1 - Anemia in chronic kidney disease Palliative-CN HPI - Data of Consult Consult date: 10/19/16 Requesting Physician: Fabby Reece MD Primary Care Provider: Sancho Olvera MD - Consult Narrative History of present illness: Ms. Cortez is a 85 year old female who has been resident at [facility] for over a year, who present with increasing confusion. Son at bedside states that pt was very agitated and combative on admission. Upon evaluation, she was found to have mod-large pericardial effusion (no tamponade) , as well as pleural effusion. She is also anemic and possible GI blood loss. She is an established DNRCC back in 2013. Daughter Cora is medical power of ip attorney. Upon my visit, she is sleeping, awakens easily and is pleasantly confused. States "dont feel well". Denies pain at this time. Inappropriate statements at times. Appears in no distress on nasal cannula. CC: Fabby Reece MD Past Med Surg Social Fam HX - Past Medical History Medical history: CHF, coronary artery disease, CVA, GERD, hyperlipidemia, hypertension, myocardial infarction Psychiatric history: anxiety, depression - Past Surgical History Surgical History: appendectomy, cholecystectomy, hysterectomy, other - Social History Smoking Status: Never smoker Smokeless Tobacco Status: No Alcohol use: none Drug use: none - Family History Mother Living Status: Father Living Status: Daughter Hx Family Cancer: Yes (lung) Medications and Allergies Allopurinol [Zyloprim 100 MG] 100 mg PO DAILY 02/06/16 [History] Ascorbic Acid [Vitamin C] 500 mg PO DAILY 02/06/16 [History] Calcium Carbonate [Tums] 1 tab PO QID PRN 02/06/16 [History] Calcium Carbonate/Vitamin D3 [Oyster Shell 500-Vit D3 200 Tb] 1 tab PO DAILY 04/16 [History] Cholecalciferol (Vitamin D3) [Vitamin D3] 5,000 units PO 3XW 02/06/16 [History] Clopidogrel [Plavix] 75 mg PO DAILY 02/06/16 [History] Cyanocobalamin (Vitamin B-12) [Vitamin B-12] 1 tab PO DAILY 02/06/16 [History] Folic Acid 1 mg PO DAILY 02/06/16 [History] Mag Hydrox/Al Hydrox/Simeth [Maalox] 30 ml PO QID PRN 02/06/16 [History] Menthol/Camphor [Polar Freeze Gel] 1 appl TP BID PRN #0 02/06/16 [History] Mirtazapine 7.5 mg PO HS 02/06/16 [History] Multivitamin [Multivitamins] 1 cap PO DAILY 02/06/16 [History] Petrolatum,White [Vaseline] 1 appl TP DAILY PRN 02/06/16 [History] Pyridoxine (B-6) [Vitamin B-6] 100 mg PO DAILY 02/06/16 [History] Ranitidine HCl [Heartburn Relief] 150 mg PO BID 02/06/16 [History] Ropinirole HCl [Requip] 0.5 mg PO BID 02/06/16 [History] Terconazole Vag CRM [Terazol] 1 appl VG DAILY PRN #0 02/06/16 [History] Vit C/E/Zn/Coppr/Lutein/Zeaxan [Ocuvite Lutein & Zeaxanthin Cp] 1 cap PO DAILY 02/06/16 [History] Isosorbide MONOnitrate (24 HR) [Imdur] 30 mg PO DAILY #30 tab.er.24h 02/08/16 [ Rx] Lidocaine HCl [Aspercreme] 1 appl TP AD 05/08/16 [History] Pantoprazole Sodium [Protonix] 20 mg PO DAILY 05/08/16 [History] Amlodipine [Norvasc] 10 mg PO DAILY tablet 05/12/16 [Rx] Magnesium Oxide [Magnesium] 400 mg PO DAILY #0 05/12/16 [Rx] Quetiapine Fumarate [Seroquel] 12.5 mg PO BID #30 tablet 05/12/16 [Rx] Thiamine (B-1) [Vitamin B-1] 100 mg PO DAILY tablet 05/12/16 [Rx] Cranberry Fruit Concentrate [Cranberry] 450 mg PO BID 09/17/16 [History] Furosemide [Lasix] 40 mg PO DAILY 09/17/16 [History] Metoprolol XL (24 HR) Succ [Toprol Xl] 25 mg PO BID 09/17/16 [History] Morphine Sulfate [Morphine Sulfate ER] 30 mg PO BID 09/17/16 [History] Capsaicin 0.025% [Trixaicin] 1 appl TP QID PRN #1 tube 09/21/16 [Rx] Hydrocodone/Acetaminophen [[place] 5-325 Tablet] 1 tab PO Q6H PRN #10 tab [Rx] LORazepam [Ativan] 0.5 mg PO BID #20 tablet 09/21/16 [Rx] Acetaminophen [Tylenol] 650 mg PO Q6HR PRN 10/17/16 [History] Ipratropium/Albuterol Neb [Duoneb] 3 ml IH BID 10/17/16 [History] Lisinopril 2.5 mg PO DAILY 10/17/16 [History] Allergies ibuprofen [From Motrin] Allergy (Verified 11/08/15 00:21) Hives niacin Allergy (Verified 11/08/15 00:21) Hives Sulfa (Sulfonamide Antibiotics) Allergy (Verified 05/08/16 12:37) Hives ROS unobtainable: due to mental status Palliative Care-Exam - Constitutional Vitals: Temp Pulse Resp BP Pulse Ox 98.5 F 98 16 128/54 96 10/19/16 09:00 10/19/16 09:00 10/19/16 10:12 10/19/16 09:00 10/19/16 10:12 General appearance: Present: no acute distress - Head Head Exam: Present: normal inspection, normocephalic - Eye Eye exam: Present: normal appearance, PERRL - Respiratory Additional comments: Breath sounds diminished bilaterally lower lobes. Poor inspiratory effort - Cardiovascular Cardiovascular exam: Present: +S1, +S2 - GI/Abdominal Exam GI/Abdominal exam: Present: normal bowel sounds, soft - Catheter Type: Urethral (Mosher) Additional comments: Clear yellow urine - Extremities Exam Extremities exam: Present: normal capillary refill, normal inspection - Neurological Exam Neurological exam: Present: alert, altered Additional comments: Oriented to name only. Asking to go home. - Psychiatric Psychiatric exam: Present: anxious - Skin Skin exam: Present: dry, pallor, warm Internal Medicine - CN: Reslt - Labs CBC & Chem 7: 10/19/16 04:16 10/19/16 04:16 Labs: Short CBC 10/18/16 10/19/16 Range/Units 19:51 04:16 WBC 5.9 (4.3-11.1) K/mcL Hgb 9.0 L D 7.7 L (11.5-15.4) g/dL Hct 28.6 L 24.7 L (35.3-44.9) % Plt Count 305 (140-400) K/mcL Neutrophils # 4.0 (1.6-8.9) K/mcL BMP 10/19/16 04:16 Sodium 138 Potassium 4.8 H Chloride 98 Carbon Dioxide 28 BUN 77 H Creatinine 2.99 H Glucose 98 Calcium 9.1 - ABG Interpretation ABG results: ABG ABG pH 7.39 pH Units (7.32-7.45) 10/17/16 20:53 ABG pCO2 55 mmHg (35-45) H 10/17/16 20:53 ABG pO2 104 mmHg (85-104) 10/17/16 20:53 ABG O2 Saturation 98 % (95-98) 10/17/16 20:53 PT/INR, D-dimer PT 13.9 Seconds (9.4-12.1) H 10/17/16 12:13 Consult Discharge Plan - Plan Referrals: Sancho Olvera MD [Primary Care Provider] - Palliative Quality Palliative Quality: Screen for Code Status: Yes, Screen for Goals of Care: Yes, Screen for Pain: Yes, If Pain Regimen Started, Initiate Bowel Regimen: NA, Screen for Nausea/Vomitting: Yes Code Status: 10/17/16 15:07 Resuscitation Status: Active [RES] Routine Comment: Resuscitation Status: DNR-Comfort Care
[2016-10-19 12:30] VITALS: BP 107/54
--- NOTE | 2016-10-19 14:14 | Discharge Summary ---
Date of Encounter: 10/19/16 Time of Encounter: 14:13 - Discharge Diagnosis (1) Acute and chronic respiratory failure Priority: Primary Status: Acute Qualifiers: Respiratory failure complication: hypoxia and hypercapnia Qualified Code(s) : J96.21 - Acute and chronic respiratory failure with hypoxia; J96.22 - Acute and chronic respiratory failure with hypercapnia (2) Pericardial effusion without cardiac tamponade Priority: Secondary Status: Acute (3) Acute encephalopathy Priority: Secondary Status: Resolved (4) Acute on chronic renal insufficiency Priority: Secondary Status: Acute (5) Anemia Priority: Secondary Status: Acute Qualifiers: Anemia type: other cause Other causes of anemia: chronic disease, kidney Qualified Code(s): N18.9 - Chronic kidney disease, unspecified; D63.1 - Anemia in chronic kidney disease (6) CHF exacerbation Priority: Secondary Status: Acute Qualifiers: Congestive heart failure type: diastolic Qualified Code(s): I50.33 - Acute on chronic diastolic (congestive) heart failure (7) Delirium due to general medical condition Priority: Secondary Status: Resolved (8) Elevated troponin I level Priority: Secondary Status: Acute - Discharge Medications Prescriptions: Levofloxacin 500 mg PO Q48H #5 tablet Home Medications: Allopurinol [Zyloprim 100 MG] 100 mg PO DAILY 02/06/16 [History] Ascorbic Acid [Vitamin C] 500 mg PO DAILY 02/06/16 [History] Calcium Carbonate [Tums] 1 tab PO QID PRN 02/06/16 [History] Calcium Carbonate/Vitamin D3 [Oyster Shell 500-Vit D3 200 Tb] 1 tab PO DAILY 04/16 [History] Cholecalciferol (Vitamin D3) [Vitamin D3] 5,000 units PO 3XW 02/06/16 [History] Clopidogrel [Plavix] 75 mg PO DAILY 02/06/16 [History] Cyanocobalamin (Vitamin B-12) [Vitamin B-12] 1 tab PO DAILY 02/06/16 [History] Folic Acid 1 mg PO DAILY 02/06/16 [History] Mag Hydrox/Al Hydrox/Simeth [Maalox] 30 ml PO QID PRN 02/06/16 [History] Menthol/Camphor [Polar Freeze Gel] 1 appl TP BID PRN #0 02/06/16 [History] Mirtazapine 7.5 mg PO HS 02/06/16 [History] Multivitamin [Multivitamins] 1 cap PO DAILY 02/06/16 [History] Petrolatum,White [Vaseline] 1 appl TP DAILY PRN 02/06/16 [History] Pyridoxine (B-6) [Vitamin B-6] 100 mg PO DAILY 02/06/16 [History] Ranitidine HCl [Heartburn Relief] 150 mg PO BID 02/06/16 [History] Ropinirole HCl [Requip] 0.5 mg PO BID 02/06/16 [History] Terconazole Vag CRM [Terazol] 1 appl VG DAILY PRN #0 02/06/16 [History] Vit C/E/Zn/Coppr/Lutein/Zeaxan [Ocuvite Lutein & Zeaxanthin Cp] 1 cap PO DAILY 02/06/16 [History] Isosorbide MONOnitrate (24 HR) [Imdur] 30 mg PO DAILY #30 tab.er.24h 02/08/16 [ Rx] Lidocaine HCl [Aspercreme] 1 appl TP AD 05/08/16 [History] Pantoprazole Sodium [Protonix] 20 mg PO DAILY 05/08/16 [History] Amlodipine [Norvasc] 10 mg PO DAILY tablet 05/12/16 [Rx] Magnesium Oxide [Magnesium] 400 mg PO DAILY #0 05/12/16 [Rx] Quetiapine Fumarate [Seroquel] 12.5 mg PO BID #30 tablet 05/12/16 [Rx] Thiamine (B-1) [Vitamin B-1] 100 mg PO DAILY tablet 05/12/16 [Rx] Cranberry Fruit Concentrate [Cranberry] 450 mg PO BID 09/17/16 [History] Furosemide [Lasix] 40 mg PO DAILY 09/17/16 [History] Metoprolol XL (24 HR) Succ [Toprol Xl] 25 mg PO BID 09/17/16 [History] Morphine Sulfate [Morphine Sulfate ER] 30 mg PO BID 09/17/16 [History] Capsaicin 0.025% [Trixaicin] 1 appl TP QID PRN #1 tube 09/21/16 [Rx] Hydrocodone/Acetaminophen [[place] 5-325 Tablet] 1 tab PO Q6H PRN #10 tab [Rx] LORazepam [Ativan] 0.5 mg PO BID #20 tablet 09/21/16 [Rx] Acetaminophen [Tylenol] 650 mg PO Q6HR PRN 10/17/16 [History] Ipratropium/Albuterol Neb [Duoneb] 3 ml IH BID 10/17/16 [History] Lisinopril 2.5 mg PO DAILY 10/17/16 [History] Levofloxacin 500 mg PO Q48H #5 tablet 10/19/16 [Rx] Allergies/Adverse Reactions: Allergies ibuprofen [From Motrin] Allergy (Verified 11/08/15 00:21) Hives niacin Allergy (Verified 11/08/15 00:21) Hives Sulfa (Sulfonamide Antibiotics) Allergy (Verified 05/08/16 12:37) Hives Procedures/tests Complete & Pending: Procedures Performed prior 72 hours Category Date Time Status EV echocardiogram Stat Y 10/17/16 14:00 Completed EV limited echocardiogram Routine Y 10/19/16 18:44 Completed Date of admission: 10/17/16 12:53 Primary care physician: Sancho Olvera MD Consults: 10/17/16 13:55 Consult to Nutrition [CONS] Routine Comment: Consulting Provider: NUTRITION Reason for Dietary Consult: MST Score Consult to Roundhouse Worker [CONS] Routine Reason for SW Consult: from signature 10/18/16 13:00 Consult to Cardiology [CONS] Routine Comment: Consulting Provider: Cardiology Leonarda Reason for Consult: pericardial effusion Time Notified: 13:00 Call Completed: Yes 10/19/16 09:25 Consult to Palliative Care [CONS] Routine Comment: Consulting Provider: Palliative Care Leonarda Discharging clinician: Fabby Reece Anticipated date of discharge: 10/19/16 - Patient Status Disposition: Transfer SNF Condition: Critical Functional capacity at discharge: uses cane/walker Overall status at discharge: patient is not back to baseline - Discharge Instructions Instructions: Acute Respiratory Distress Syndrome (DC), Anemia (GEN) Follow Up With: Sancho Olvera MD [Primary Care Provider] - (at SNF) - Diet and Activity Activity: increase activity as tolerated Diet: diabetic diet, low salt diet Hospital course: Ms. Cortez is a 85 year old female with history of coronary artery disease congestive heart failure, CVA, hypertension, RI was admitted here with acute on chronic respiratory failure with hypoxia and hypercapnia. Patient was initially treated for pneumonia and congestive heart failure and a 2-D echocardiogram done here showed moderate to large size pericardial effusion. Cardiology was consulted and initially recommended conservative management. A 2 -D echocardiogram done today shows large size pericardial effusion with signs suggestive of early tamponade. Palliative care was consulted per family wishes and after discussing these findings with the patient and patient's wishes, the patient will be discharged back to the long term on hospice which will be arranged there. Patient does not wish for any aggressive medical interventions. She did have a retrocardiac infiltrate on initial x-ray and was treated with broad-spectrum antibiotics. We will de-escalate them and place the patient on 500 mg levofloxacin every 48 hours for 5 more doses. The patient also has acute on chronic anemia and chronic kidney disease stage III. Her hemoglobin levels have been decreasing during her stay here. However , in keeping with the patient's wishes, no further evaluation will be done at this time. - Time Spent with Patient Total time spent providing and/or coordinating discharge services: Greater than 30 minutes (35 min) - Constitutional Vitals: Temp Pulse Resp BP Pulse Ox 98 F 85 15 107/54 95 10/19/16 11:55 10/19/16 12:15 10/19/16 11:55 10/19/16 11:55 10/19/16 11:55 General appearance: Present: cooperative, A&O X 2, mild distress, pleasant, answers questions appropriately - Respiratory Respiratory exam: Present: CTAB. Absent: accessory muscle use, rales, rhonchi, wheezes - Cardiovascular Cardiovascular exam: Present: RRR, +S1, +S2, systolic murmur. Absent: diastolic murmur, gallop, rubs - Extremities Exam Extremities exam: Present: warm, radial pulses palpable and symetrical. Absent : calf tenderness, cyanotic, pedal edema - Attending Attestation This document has been at least partially created by [employer] recognition technology by Dr. Reece. Errors in grammar, wording or other phrases may exist. If errors are found after the documentation is signed, they will be addressed individually in the addendum section of this document when appropriate.
--- NOTE | 2016-10-19 14:25 | Physician Discharge Referral ---
ExtendedCare Referral Info Transfer To: SNF Provider in Charge after Transfer: PCP Institutional Level of Care: Skilled - Diagnosis (1) Acute and chronic respiratory failure Priority: Primary Status: Acute (2) Pericardial effusion without cardiac tamponade Priority: Secondary Status: Acute (3) Acute encephalopathy Priority: Secondary Status: Resolved (4) Acute on chronic renal insufficiency Priority: Secondary Status: Acute (5) Anemia Priority: Secondary Status: Acute (6) CHF exacerbation Priority: Secondary Status: Acute (7) Delirium due to general medical condition Priority: Secondary Status: Resolved (8) Elevated troponin I level Priority: Secondary Status: Acute - Transfer Medications Prescriptions: Levofloxacin 500 mg PO Q48H #5 tablet Home Medications: Allopurinol [Zyloprim 100 MG] 100 mg PO DAILY 02/06/16 [History] Ascorbic Acid [Vitamin C] 500 mg PO DAILY 02/06/16 [History] Calcium Carbonate [Tums] 1 tab PO QID PRN 02/06/16 [History] Calcium Carbonate/Vitamin D3 [Oyster Shell 500-Vit D3 200 Tb] 1 tab PO DAILY 04/16 [History] Cholecalciferol (Vitamin D3) [Vitamin D3] 5,000 units PO 3XW 02/06/16 [History] Clopidogrel [Plavix] 75 mg PO DAILY 02/06/16 [History] Cyanocobalamin (Vitamin B-12) [Vitamin B-12] 1 tab PO DAILY 02/06/16 [History] Folic Acid 1 mg PO DAILY 02/06/16 [History] Mag Hydrox/Al Hydrox/Simeth [Maalox] 30 ml PO QID PRN 02/06/16 [History] Menthol/Camphor [Polar Freeze Gel] 1 appl TP BID PRN #0 02/06/16 [History] Mirtazapine 7.5 mg PO HS 02/06/16 [History] Multivitamin [Multivitamins] 1 cap PO DAILY 02/06/16 [History] Petrolatum,White [Vaseline] 1 appl TP DAILY PRN 02/06/16 [History] Pyridoxine (B-6) [Vitamin B-6] 100 mg PO DAILY 02/06/16 [History] Ranitidine HCl [Heartburn Relief] 150 mg PO BID 02/06/16 [History] Ropinirole HCl [Requip] 0.5 mg PO BID 02/06/16 [History] Terconazole Vag CRM [Terazol] 1 appl VG DAILY PRN #0 02/06/16 [History] Vit C/E/Zn/Coppr/Lutein/Zeaxan [Ocuvite Lutein & Zeaxanthin Cp] 1 cap PO DAILY 02/06/16 [History] Isosorbide MONOnitrate (24 HR) [Imdur] 30 mg PO DAILY #30 tab.er.24h 02/08/16 [ Rx] Lidocaine HCl [Aspercreme] 1 appl TP AD 05/08/16 [History] Pantoprazole Sodium [Protonix] 20 mg PO DAILY 05/08/16 [History] Amlodipine [Norvasc] 10 mg PO DAILY tablet 05/12/16 [Rx] Magnesium Oxide [Magnesium] 400 mg PO DAILY #0 05/12/16 [Rx] Quetiapine Fumarate [Seroquel] 12.5 mg PO BID #30 tablet 05/12/16 [Rx] Thiamine (B-1) [Vitamin B-1] 100 mg PO DAILY tablet 05/12/16 [Rx] Cranberry Fruit Concentrate [Cranberry] 450 mg PO BID 09/17/16 [History] Furosemide [Lasix] 40 mg PO DAILY 09/17/16 [History] Metoprolol XL (24 HR) Succ [Toprol Xl] 25 mg PO BID 09/17/16 [History] Morphine Sulfate [Morphine Sulfate ER] 30 mg PO BID 09/17/16 [History] Capsaicin 0.025% [Trixaicin] 1 appl TP QID PRN #1 tube 09/21/16 [Rx] Hydrocodone/Acetaminophen [[place] 5-325 Tablet] 1 tab PO Q6H PRN #10 tab [Rx] LORazepam [Ativan] 0.5 mg PO BID #20 tablet 09/21/16 [Rx] Acetaminophen [Tylenol] 650 mg PO Q6HR PRN 10/17/16 [History] Ipratropium/Albuterol Neb [Duoneb] 3 ml IH BID 10/17/16 [History] Lisinopril 2.5 mg PO DAILY 10/17/16 [History] Levofloxacin 500 mg PO Q48H #5 tablet 10/19/16 [Rx] Allergies/Adverse Reactions: Allergies ibuprofen [From Motrin] Allergy (Verified 11/08/15 00:21) Hives niacin Allergy (Verified 11/08/15 00:21) Hives Sulfa (Sulfonamide Antibiotics) Allergy (Verified 05/08/16 12:37) Hives - Respiratory Orders Oxygen / L per min (kep sats >90%) Smoking Cessation: Smoking cessation has been advised. For more information, call the [place] Tobacco Quit Line at 0-667-HUUG-NOW. - Ancillary Orders May use pressure relief devices daily prn, May consult with Dentist, Cold Roller, Cell Geneticist PRN - Advance Directives Code Status: DNR-Comfort Care - Mobility Orders Other (per PT) - Rehabiliation Orders Rehab Potential: Fair Rehab Orders: Evaluation for Physical Therapy, Evaluation for Occupational Therapy - Diet Orders Cardiac (and Diabetic) CERTIFICATION: I certify that the transfer of the above named patient to an Extended Care Facility is necessary for the continuing treatment of the diagnosis listed. The above information is true and accurate reflection of patient's current condition. Confidential - Redisclosure prohibited without a patient's written consent.
[2016-10-19] MEDS ORDERED: Aminoglycoside Consult 1 EACH MC ONE (17:08)
[2016-10-19] MEDS ORDERED: Levofloxacin 500 MG/100 ML 500 MG/100 ML BAG IVPB SCH (18:00)
[2016-10-20] MEDS ORDERED: Furosemide 40 MG TABLET PO SCH (09:00)
[2016-10-20 11:01] LABS: Folate 17.9 ng/mL (7.0-31.4); Vitamin B12 > 2000 pg/mL (213-816)
== END 2016-10-19 17:09 | DRG 190 ==
LOC: EMEROO 11:03 → 2NNU 11:03 → SUATTDRO 12:53 → OBSVTOIN 12:53 → 2NNU 13:15
PROVIDERS: ADMIT Internal Medicine; ATTEND Internal Medicine